=== PATIENT | female | born 1950 | race Caucasian/White ===

== ENCOUNTER → 2016-06-05 | Outpatient (CLI) | payer BC ==
[~2016-06-05] MED LIST: ADVIN10/60 INH; ALBUAER2 INH; ASPCH81X PO; ATOR10TA88 PO; CHOL100010 PO; CHOL20009 PO; CYAN100020 PO; LISI-461 PO; METAMUCIL PO; MULT-506 PO; OMEG10007 PO; ONDA4TAB10 SL; OXYB5TAB74 PO; OXYC-57 PO; PRED1SUS3 OPR; PRLSR20 PO; TAMS0.4C38 PO; ULT50X PO; VNTHFA/IN INH; VSC/5 PO; [UNRECOGNIZED DRUG - OTHER] PO
--- NOTE | 2016-06-05 10:39 | DIAGNOSTIC IMAGING REPORT ---
TWO VIEW CHEST CLINICAL HISTORY: Esophageal dysmotility. FINDINGS: PA and lateral chest radiographs are obtained. No prior studies are available for comparison at the time of dictation. The cardiomediastinal silhouette is unremarkable. There is mild atherosclerotic calcification of the thoracic aorta. The lungs and pleural spaces are clear. There is no pneumothorax. The skeletal structures are osteopenic. The bony thorax appears intact. Mild scoliosis is noted in the thoracic spine. Cholecystectomy clips are identified in the right upper quadrant. IMPRESSION: No active disease in the chest. Electronically signed by: Duke Cervantes M.D. 06/05/2016 10:37 AM Dictated Date/Time: 06/05/2016 10:36 AM
== END | disposition home or self-care (01) ==
LOC: C.RADBC 10:13
PROVIDERS: ATTEND Surgery
DX: K22.4 Dyskinesia of esophagus (principal)

== ENCOUNTER 2016-06-30 10:22 | Emergency (ER) | payer BC ==
[~2016-06-30] VITALS: Ht 154.9 cm; Wt 56.6 kg
[~2016-06-30 10:22] MED LIST changes: -CHOL20009 PO; -ONDA4TAB10 SL; -OXYB5TAB74 PO; -OXYC-57 PO; -TAMS0.4C38 PO; -VNTHFA/IN INH
[2016-06-30 10:27] VITALS: TEMP 36.9; Ht 154.9 cm; Wt 56.6 kg
[2016-06-30] MEDS ORDERED: ADVIN10/60 INH (11:28)
[2016-06-30] MEDS ORDERED: CHOL20009 PO (11:29)
[2016-06-30] MEDS ORDERED: VNTHFA/IN INH (11:29)
[2016-06-30] MEDS ORDERED: SODIUM CHLORIDE 0.9% 1000ML 1,000 ML IV STA (11:38)
[2016-06-30 11:50] LABS: BASO % 0.2 %; BASO ABS # 0.02 K/uL (0-0.2); COMPLETE YES; EOS % 0.2 %; HEMATOCRIT 40.3 % (37-47); IG% 0.2 %; LYMPH % 11.4 %; MEAN CORPUSCULAR HEMOGLOBIN 29.3 pg (25-34); MEAN CORPUSCULAR HGB CONC 34.5 g/dl (32-36); MEAN PLATELET VOLUME 11.5 fL (7.4-10.4); MONO % 9.5 %; NEUT % 78.5 %; PLATELET COUNT 217 K/uL (130-400); RED BLOOD COUNT 4.74 M/uL (4.2-5.4); WHITE BLOOD COUNT 12.27 K/uL (4.8-10.8)
[2016-06-30 11:58] LABS: BUN/CREATININE RATIO 20.4 (10-20); CALCIUM 9.8 mg/dl (8.5-10.1); CREATININE 1.1 mg/dl (0.60-1.20); POTASSIUM 3.7 mmol/L (3.5-5.1)
[2016-06-30] MEDS ORDERED: OPTIRAY 320 IV PRN (12:00)
[2016-06-30 12:02] LABS: ALB/GLOB RATIO 1.2 (0.9-2)
--- NOTE | 2016-06-30 12:40 | DIAGNOSTIC IMAGING REPORT ---
CT ABD/PELVIS IV CONTRAST ONLY CLINICAL HISTORY: LLQ pain, vomiting, constipation COMPARISON STUDY: 09/13/2008 TECHNIQUE: Following the IV administration of 119 mL of Optiray-320, CT scan of the abdomen and pelvis was performed from the lung bases to the proximal femurs. Images are reviewed in the axial, sagittal, and coronal planes. IV contrast was administered without complication. CT DOSE: 411.89 mGy.cm FINDINGS: Lower chest: There are mild basilar atelectatic changes present. There is a hiatal hernia with distal esophageal wall thickening. Liver: No space-occupying hepatic masses are visualized. There is focal fat adjacent the falciform ligament. Gallbladder: Unremarkable. Spleen: Normal in size and attenuation. Pancreas: No pancreatic masses are visualized. There is trace peripancreatic edema, likely originating from the left kidney Adrenal glands: Unremarkable. Kidneys: There is left-sided hydronephrosis and hydroureter. There is a 28 mm left renal cyst. There is obstructing 5 mm calculus at the level the left ureterovesical junction. Bowel: There are no transition zones indicate bowel obstruction. There is extensive colonic diverticulosis. Mild colonic wall thickening, likely secondary to peridiverticular muscular hypertrophy. The appendix appears normal. Peritoneum: There is no intraperitoneal free air or abdominal ascites. There is small fat-containing inguinal hernias. Vasculature: The abdominal aorta is normal in course and caliber. Adenopathy: None. Pelvic viscera: The uterus appears surgically absent. Skeletal structures: No destructive osseous lesions are seen. IMPRESSION: 1. 5 mm obstructing distal left ureteral calculus 2. No evidence of bowel obstruction. No evidence of free air 3. Normal appendix 4. Extensive diverticulosis. No evidence of acute diverticulitis 5. Hiatal hernia with distal esophageal wall thickening Electronically signed by: Otto Bansal M.D. 06/30/2016 12:39 PM Dictated Date/Time: 06/30/2016 12:32 PM
[2016-06-30 13:02] LABS: URINE APPEARANCE CLEAR (CLEAR); URINE BILIRUBIN NEG (NEG); URINE COLOR YELLOW; URINE NITRITE NEG (NEG); URINE PH 6.5 (4.5-7.5); URINE SPECIFIC GRAVITY 1.028 (1.000-1.030); UROBILINOGEN NEG (NEG); ZZUR CULT IF INDIC CLEAN CATCH NO
[2016-06-30 13:05] LABS: MANUAL MICROSCOPIC REQUIRED? NO; REVIEW REQ? NO
--- NOTE | 2016-06-30 13:19 | EMERGENCY ROOM VISIT NOTE ---
ED Visit Note First contact with patient: 11:29 The patient was seen and examined with Maegan De La Torre PA-C. I agree with the history, physical and findings. Please see the note for disposition and details.
[2016-06-30 13:21] VITALS: BP 113/68; PULSE 84; O2SAT 98
[2016-06-30] MEDS ORDERED: TAMS0.4C38 PO (13:42)
[2016-06-30] MEDS ORDERED: OXYC-57 PO (13:42)
[2016-06-30] MEDS ORDERED: ONDA4TAB10 SL (13:42)
--- NOTE | 2016-06-30 13:43 | EMERGENCY ROOM VISIT NOTE ---
History First contact with patient: 11:29 Chief Complaint: GI ASSESSMENT Stated Complaint: POSSIBLE BOWEL BLOCKAGE Nursing Triage Summary: Pt states "suspected bowel blockage" C/O LLQ abd pain since Thursday. Pain gets worse then she throws up and can urinate. Last night started with pain again. N/V x 7 times. Frequency and urgency with urination. "I haven't had a real BM since last Thursday, I've had a couple bunny turds that I've had to force out." Hiatal hernia repair Apr 28. History of Present Illness The patient is a 65 year old female who presents to the Emergency Room with complaints of intermittent left lower quadrant pain which began 6 days ago. The patient states that she has had several episodes of severe pain in the left lower quadrant. She reports that when she has the pain, she has difficulty emptying her bladder and feels like she has to have a bowel movement, but is not able. She has had several episodes of vomiting and states that yesterday, a few of the vomiting episodes have the appearance of coffee grounds. The patient states that she feels she is constipated and has not had a normal bowel movement in 1 week. She had a hiatal hernia repair in April by Dr. Santos and did contact him regarding this, but he did not feel it was related to the surgery. The patient has had the hiatal hernia repair and hysterectomy, but denies any other abdominal surgeries. She denies any further urinary symptoms. She denies any vaginal bleeding, fevers/chills, chest pain or shortness of breath. Review of Systems A complete 10-point Review of Systems was discussed with the patient, with pertinent positives and negatives listed in the History of Present Illness. All remaining Review of Systems questions can be considered negative unless otherwise specified. Past Medical/Surgical History Medical Problems: (1) GERD (gastroesophageal reflux disease) Social History Smoking Status: Never Smoker Current/Historical Medications Scheduled Aspirin (Aspirin Chewable), 81 MG PO QAM Atorvastatin (Lipitor), 10 MG PO QAM Cholecalciferol (Vitamin D), 1 TAB PO DAILY Cyanocobalamin (Vitamin B12), 1 TAB PO QAM Fish Oil ([place]-3), 2 CAP PO QAM Fluticasone Prop/Salmeterol (Advair Diskus 100/50 60 Dose), 1 PUFF INH QAM Lisinopril (Zestril), 10 MG PO QAM Multivitamin (Multivitamin), 1 TAB PO QAM Omeprazole (Prilosec), 20 MG PO QAM Ondasetron Odt (Zofran Odt), 4 MG SL Q6H Prednisolone Acetate (Ophth) (Pred Forte 1% Oph), 1 DROPS OPR QAM Solifenacin (Vesicare), 5 MG PO QAM Tamsulosin Hcl (Flomax), 0.4 MG PO DAILY Scheduled PRN Albuterol Hfa (Ventolin Hfa), 1 PUFF INH QID PRN for Shortness of Breath Oxycodone/Acetaminophen 5MG/325MG (Percocet 5MG/325MG), 1-2 TABS PO Q4H PRN for Pain Allergies Coded Allergies: Sulfa Drugs (Verified Allergy, Unknown, ITCHY, 06/30/16) Uncoded Allergies: OTC sinus med (Allergy, Unknown, rash, 04/15/16) pt to write down name of med and bring day of surgery Physical Exam Vital Signs Date Time Temp Pulse Resp B/P Pulse Ox O2 Delivery O2 Flow Rate FiO2 06/30/16 13:21 84 18 113/68 98 Room Air 06/30/16 12:37 84 18 104/61 96 Room Air 06/30/16 10:27 36.9 92 17 129/81 98 Room Air Physical Exam VITALS: Vitals are noted on the nurse's note and reviewed by myself. Vital signs stable. GENERAL: This is a 65-year-old female, in no acute distress, nondiaphoretic, well-developed well-nourished. SKIN: Capillary reflex less than 2 seconds. HEENT: Normocephalic. PERRLA. EOMI. Nares patent. Mucous membranes moist. Neck is supple without nuchal rigidity. HEART: Regular rate and rhythm without murmurs gallops or rubs. LUNGS: Clear to auscultation bilaterally without wheezes, rales or rhonchi. ABDOMEN: Positive bowel sounds x 4. Soft, nontender to palpation. NEURO: Patient was alert and oriented to person place and time. Medical Decision & Procedures ER Provider Diagnostic Interpretation: CT ABD/PELVIS IV CONTRAST ONLY FINDINGS: Lower chest: There are mild basilar atelectatic changes present. There is a hiatal hernia with distal esophageal wall thickening. Liver: No space-occupying hepatic masses are visualized. There is focal fat adjacent the falciform ligament. Gallbladder: Unremarkable. Spleen: Normal in size and attenuation. Pancreas: No pancreatic masses are visualized. There is trace peripancreatic edema, likely originating from the left kidney Adrenal glands: Unremarkable. Kidneys: There is left-sided hydronephrosis and hydroureter. There is a 28 mm left renal cyst. There is obstructing 5 mm calculus at the level the left ureterovesical junction. Bowel: There are no transition zones indicate bowel obstruction. There is extensive colonic diverticulosis. Mild colonic wall thickening, likely secondary to peridiverticular muscular hypertrophy. The appendix appears normal. Peritoneum: There is no intraperitoneal free air or abdominal ascites. There is small fat-containing inguinal hernias. Vasculature: The abdominal aorta is normal in course and caliber. Adenopathy: None. Pelvic viscera: The uterus appears surgically absent. Skeletal structures: No destructive osseous lesions are seen. IMPRESSION: 1. 5 mm obstructing distal left ureteral calculus 2. No evidence of bowel obstruction. No evidence of free air 3. Normal appendix 4. Extensive diverticulosis. No evidence of acute diverticulitis 5. Hiatal hernia with distal esophageal wall thickening Laboratory Results 06/30/16 11:17 Red Blood Count 4.74, Mean Corpuscular Volume 85.0, Mean Corpuscular Hemoglobin 29.3, Mean Corpuscular Hemoglobin Concent 34.5, Mean Platelet Volume 11.5, Neutrophils (%) (Auto) 78.5, Lymphocytes (%) (Auto) 11.4, Monocytes (%) (Auto) 9.5, Eosinophils (%) (Auto) 0.2, Basophils (%) (Auto) 0.2, Neutrophils # (Auto) 9.64, Lymphocytes # (Auto) 1.40, Monocytes # (Auto) 1.16, Eosinophils # (Auto) 0.02, Basophils # (Auto) 0.02 06/30/16 11:17 Test 06/30/16 11:17 06/30/16 12:36 White Blood Count 12.27 K/uL (4.8-10.8) Red Blood Count 4.74 M/uL (4.2-5.4) Hemoglobin 13.9 g/dL (12.0-16.0) Hematocrit 40.3 % (37-47) Mean Corpuscular Volume 85.0 fL (80-100) Mean Corpuscular Hemoglobin 29.3 pg (25-34) Mean Corpuscular Hemoglobin Concent 34.5 g/dl (32-36) Platelet Count 217 K/uL (130-400) Mean Platelet Volume 11.5 fL (7.4-10.4) Neutrophils (%) (Auto) 78.5 % Lymphocytes (%) (Auto) 11.4 % Monocytes (%) (Auto) 9.5 % Eosinophils (%) (Auto) 0.2 % Basophils (%) (Auto) 0.2 % Neutrophils # (Auto) 9.64 K/uL (1.4-6.5) Lymphocytes # (Auto) 1.40 K/uL (1.2-3.4) Monocytes # (Auto) 1.16 K/uL (0.11-0.59) Eosinophils # (Auto) 0.02 K/uL (0-0.5) Basophils # (Auto) 0.02 K/uL (0-0.2) RDW Standard Deviation 39.2 fL (36.4-46.3) RDW Coefficient of Variation 12.7 % (11.5-14.5) Immature Granulocyte % (Auto) 0.2 % Immature Granulocyte # (Auto) 0.03 K/uL (0.00-0.02) Anion Gap 10.0 mmol/L (3-11) Est Creatinine Clear Calc Drug Dose 37.4 ml/min Estimated GFR () 60.2 Estimated GFR (Non- 51.9 BUN/Creatinine Ratio 20.4 (10-20) Calcium Level 9.8 mg/dl (8.5-10.1) Total Bilirubin 0.6 mg/dl (0.2-1) Aspartate Amino Transf (AST/SGOT) 17 U/L (15-37) Alanine Aminotransferase (ALT/SGPT) 22 U/L (12-78) Alkaline Phosphatase 95 U/L (45-117) Total Protein 7.4 gm/dl (6.4-8.2) Albumin 4.0 gm/dl (3.4-5.0) Globulin 3.4 gm/dl (2.5-4.0) Albumin/Globulin Ratio 1.2 (0.9-2) Lipase 72 U/L (73-393) Urine Color YELLOW Urine Appearance CLEAR (CLEAR) Urine pH 6.5 (4.5-7.5) Urine Specific [place] 1.028 (1.000-1.030) Urine Protein NEG (NEG) Urine Glucose (UA) NEG (NEG) Urine Ketones NEG (NEG) Urine Occult Blood 1+ (NEG) Urine Nitrite NEG (NEG) Urine Bilirubin NEG (NEG) Urine Urobilinogen NEG (NEG) Urine Leukocyte Esterase NEG (NEG) Urine WBC (Auto) 1-5 /hpf (0-5) Urine RBC (Auto) 0-4 /hpf (0-4) Urine Hyaline Casts (Auto) 1-5 /lpf (0-5) Urine Epithelial Cells (Auto) 10-20 /lpf (0-5) Urine Bacteria (Auto) NEG (NEG) Medications Administered Medications (Trade) Dose Ordered Sig/Terrance Route Start Time Stop Time Status Last Admin Dose Admin Sodium Chloride (Nss 1000ml) 1,000 ml @ 999 mls/hr Q1H1M STAT IV 06/30/16 11:38 06/30/16 12:38 DC 06/30/16 11:45 999 MLS/HR Medical Decision Differential diagnosis includes small bowel obstruction, diverticulitis, renal calculus, cystitis, gastroenteritis, colitis, among others. The patient was evaluated as above. Labs were drawn and IV access was obtained. Imaging studies were performed and read by radiology as above. The patient was medicated with 1 L normal saline solution. The patient was reassessed multiple times during their stay in the emergency department and remained in stable condition. The patient is a 65-year-old female who presents today complaining of intermittent left lower quadrant pain and constipation. Labs revealed a mild leukocytosis, possibly secondary to vomiting. There was no concerning anemia or electrolyte abnormality. Kidney function and liver functions were within normal limits. Urinalysis was not suggestive of infection, but did show the presence of blood. A CT scan of the abdomen and pelvis was performed and showed a distal left ureteral calculus. This is likely the cause of the patient 's discomfort. She will be given prescriptions for pain medication, Zofran and Flomax and given a urine strainer. She has seen Dr. Butcher of urology for bladder issues in the past and will follow-up with him. I did recommended the patient follow up closely with her primary care provider regarding the possible GI bleed, as she did describe coffee-ground emesis. She was instructed to return sooner if she had worsening symptoms or worsening pain. Based on the patient's presentation, lab results, and imaging studies, I feel the patient is stable for outpatient treatment. The patient's case was reviewed with Dr. Chaney, ED attending physician, who agreed with my assessment and treatment plan. Discharge instructions were reviewed with the patient. The patient verbalized understanding of my assessment and treatment plan and was discharged home in good condition. [place] Drug Monitoring [place] Search Results: patient reviewed within database, no issues identified Impression Primary Impression: Left ureteral calculus Departure Information Dispostion Home / Self-Care Condition GOOD Prescriptions Tamsulosin Hcl (FLOMAX) 0.4 Mg Cap 0.4 MG PO DAILY for 10 Days, #10 CAP Prov: Maegan De La Torre PA-C 06/30/16 Ondasetron Odt (ZOFRAN ODT) 4 Mg Tab 4 MG SL Q6H for Nausea, #15 TAB Prov: Maegan De La Torre PA-C 06/30/16 Oxycodone/Acetaminophen 5MG/325MG (PERCOCET 5MG/325MG) Tab 1-2 TABS PO Q4H Y for Pain, #20 TAB For Initial Treatment Prov: Maegan De La Torre PA-C 06/30/16 Referrals Galdino Puente D.O.Int.Med. (PCP) Reza Butcher M.D. Patient Instructions My [facility] Additional Instructions You have been treated in the Emergency Department today for a Kidney Stone ( Nephrolithiasis). Follow-up with your primary care provider in the next 1-2 weeks regarding your possible gastrointestinal bleeding. Continue Prilosec as we discussed. You have been prescribed Percocet to be used for pain control. This is a narcotic medication. You cannot drive or consume alcohol while on this medicine. This medicine should only be used for pain that cannot be controlled with [id number] pain medicines. You have been prescribed Zofran to be used for any nausea or vomiting. Take as prescribed. You have been prescribed Flomax 0.4 mg to be taken ONCE daily. This medicine has been prescribed as it can help relax the smooth muscles of the urinary tract increasing transit time of the kidney stone. For pain control, you can use the following hmub-yim-iqpyqpx medicines (if >12 yo): - Regular strength (325mg/tab) Tylenol (acetaminophen) 2 tabs every 4-6 hours as needed. Do not exceed 12 tablets in a 24 hour period. Avoid taking more than 4 grams (4000 mg) of Tylenol per day. This includes any other sources of acetaminophen you may take on a regular basis. - Regular strength (200 mg/tab) Advil (ibuprofen) 1-2 tabs every 4-6 hours as needed. Do not exceed a dose of 3200 mg per day. You have been provided a strainer and specimen collection cup. You should strain your urine to collect any passed stones. Your stones can be placed into the specimen cup and taken to your Urologist for further evaluation. You should contact your Urologist's office to establish a follow-up appointment from today's Emergency Department visit. Return to the Emergency Department if your symptoms persist despite the treatment plan outlined above or if you develop the following symptoms: intractable pain, fever, chills, or large amounts of blood in your urine.
[2016-07-10] MEDS ORDERED: TAMS0.4C38 PO (08:50)
[2016-07-10] MEDS ORDERED: OXYB5TAB74 PO (08:50)
[2016-07-18] MEDS ORDERED: OXYC-57 PO (08:06)
== END 2016-06-30 13:51 | disposition home or self-care (01) ==
LOC: C.EDB 10:23 → C.EDC 13:51
DX: N20.1 Calculus of ureter (principal); K21.9 Gastro-esophageal reflux disease without esophagitis; Z79.82 Long term (current) use of aspirin; R11.10 Vomiting, unspecified

== ENCOUNTER → 2016-07-07 | Outpatient (CLI) | payer BC ==
[~2016-07-07] MED LIST changes: -ALBUAER2 INH; -CHOL100010 PO; +CHOL20009 PO; -METAMUCIL PO; +ONDA4TAB10 SL; +OXYB5TAB74 PO; +OXYC-57 PO; +TAMS0.4C38 PO; -ULT50X PO; +VNTHFA/IN INH; -[UNRECOGNIZED DRUG - OTHER] PO
--- NOTE | 2016-07-07 13:44 | DIAGNOSTIC IMAGING REPORT ---
KUB CLINICAL HISTORY: Left flank pain. Ureteral calculus. COMPARISON STUDY: CT scan dated 06/30/2016 FINDINGS: There is no pathologic bowel dilatation. There is moderate stool within the right colon. No renal calculi are visualized. There is a 5 mm calcification within the left pelvic basin, consistent with the recently described distal left ureteral calculus. IMPRESSION: 5 mm calcification within the left pelvic basin, consistent with the patient's recently described distal left ureteral calculus Electronically signed by: Otto Bansal M.D. 07/07/2016 1:42 PM Dictated Date/Time: 07/07/2016 1:40 PM
== END | disposition home or self-care (01) ==
LOC: C.RADBC 13:21
PROVIDERS: ATTEND Nurse Practitioner Family
DX: N20.1 Calculus of ureter (principal)

== ENCOUNTER → 2016-07-08 | Outpatient (CLI) | payer BC | END | disposition home or self-care (01) | LOC: C.LAB 16:52 | PROVIDERS: ATTEND Nurse Practitioner Family | DX: N20.1 Calculus of ureter (principal) ==

== ENCOUNTER → 2016-07-10 | Outpatient (CLI) | payer BC ==
--- NOTE | 2016-07-10 13:25 | MAMMOGRAPHY REPORT ---
BILATERAL DIGITAL SCREENING MAMMOGRAM WITH CAD: 07/10/2016 CLINICAL HISTORY: Routine screening. Patient has no complaints. TECHNIQUE: Current study was also evaluated with a Computer Aided Detection (CAD) system. Bilatera l CC and MLO views were obtained. COMPARISON: Comparison is made to exams dated: 07/09/2015 mammogram, 07/06/2013 mammogram, 07/07/2014 mammogram, 07/05/2012 mammogram, 06/25/2011 mammogram, and 06/24/2010 mammogram - [facility]. BREAST COMPOSITION: The tissue of both breasts is heterogeneously dense, which may obscure small ma sses. FINDINGS: No suspicious masses, calcifications, or areas of architectural distortion are noted in e ither breast. There has been no significant interval change compared to prior exams. IMPRESSION: ACR BI-RADS CATEGORY 1: NEGATIVE There is no mammographic evidence of malignancy. A 1 year screening mammogram is recommended. The p atient will receive written notification of the results. Approximately 10% of breast cancers are not detected with mammography. A negative mammographic repor t should not delay biopsy if a clinically suggestive mass is present. Evy Carrizales M.D. ah/:07/10/2016 12:38:07 Editor Publications: Angelia CARIAS(R)(M), [facility] letter sent: Normal 1/2 BI-RADS Code: ACR BI-RADS Category 1: Negative
== END | disposition home or self-care (01) ==
LOC: C.MAMM 11:03
PROVIDERS: ATTEND Obstetrics & Gynecology
DX: Z12.31 Encounter for screening mammogram for malignant neoplasm of breast (principal)

== ENCOUNTER → 2016-07-17 | Outpatient (CLI) | payer BC ==
[~2016-07-17] MED LIST changes: -ONDA4TAB10 SL; -PRED1SUS3 OPR
--- NOTE | 2016-07-17 17:38 | DIAGNOSTIC IMAGING REPORT ---
KUB CLINICAL HISTORY: Ureteral calculus COMPARISON STUDY: KUB dated 07/07/2016, CT scan dated 06/30/2016 FINDINGS: There is scattered stool throughout the colon. The renal shadows are largely obscured by overlying bowel gas and fecal material. There is no conventional radiographic evidence of bowel obstruction. There are surgical clips within the right upper quadrant consistent with a prior cholecystectomy. There is a stable 5 mm left pelvic basin calcification, consistent with the patient's known distal left ureteral calculus IMPRESSION: No change in the 5 mm left pelvic basin calcification, consistent with the patient's known distal left ureteral calculus Electronically signed by: Otto Bansal M.D. 07/17/2016 5:37 PM Dictated Date/Time: 07/17/2016 5:36 PM
== END | disposition home or self-care (01) ==
LOC: C.RAD 16:54
PROVIDERS: ATTEND Nurse Practitioner Family
DX: N20.1 Calculus of ureter (principal)

== ENCOUNTER → 2016-07-18 | Day surgery (SDC) | payer BC ==
[2016-07-10 08:51] VITALS: Ht 154.3 cm; Wt 58.2 kg
[~2016-07-18] VITALS: Ht 154.3 cm; Wt 58.2 kg
[~2016-07-18] MED LIST changes: +ACETAMINOPHEN 325 MG TAB ONE; +ACETAMINOPHEN 325 MG TAB PO STA; +ATROPINE SULFATE 0.1 MG/ML 5ML SYR IV PRN; +CIPROFLOXACIN 400MG / D5W IV SCH; +DEXAMETHASONE SOD INJ 4 MG/ML VIAL ONE; +EpHEDrine SULFATE INJ 50 MG/ML AMP IV PRN; +FENTANYL CITRATE INJ 50 MCG/1 ML 2 ML VIAL IV PRN; +FENTANYL CITRATE INJ 50 MCG/1 ML 2 ML VIAL ONE; +LACTATED RINGER'S 1000ML 1,000 ML IV SCH; +LIDOCAINE HCL 2% 2 ML VIAL (20MG/ML) ONE; +MIDAZOLAM HCL 1 MG/ML 2ML VIAL ONE; +ONDANSETRON INJ 2 MG/ML 2 ML VIAL ONE; +OXYCODONE/ACETAMINOPHEN 5-325 TAB PO PRN; +PROPOFOL IV EMULSION 10 MG/ML 20 ML VIAL IV ONE
--- NOTE | 2016-07-18 07:40 | History & Physical Bridge Note ---
H&P Re-Evaluation Bridge Note: I have examined the patient, reviewed the History & Physical and in the interval since the performance of the History & Physical I have noted the following changes of clinical significance: No changes noted
--- NOTE | 2016-07-18 08:06 | [facility] Post Operative Brief Note ---
Immediate Operative Summary Operative Date Jul 18, 2016. Pre-Operative Diagnosis left ureteral stone Post-Operative Diagnosis same Procedure(s) Performed left eswl Surgeon daisy [employer] [facility] Worker Surgeon(s) none Estimated Blood Loss none Findings left ureteral stone Specimens none
--- NOTE | 2016-07-18 08:08 | Discharge Instructions-SurgCtr ---
Discharge Instructions Date of Service Jul 18, 2016. Visit Reason for Visit: Stones Discharge Discharge Diagnosis / Problem: stone Discharge Goals Goal(s): Therapeutic intervention Medications Stopped Medications Name(s): ASA- LAST TAKEN Thursday07/11/16 Activity Recommendations Activity Limitations: resume your previous activity (take it easy today) MEDICATIONS: Resume previous medications unless instructed otherwise by your surgeon. Resume pre-ESWL medication except for aspirin, coumadin or other blood thinners. __ Toradol 10 mg every 6 hours for initial pain. __ Lortab 5 mg 1-2 every 4 hours for pain. _x_ Percocet 5 mg 1-2 every 4 hours for pain. __ Macrodantin 50 mg x 3 a day. __ Flomax 1 tab daily one half (1/2) hour after supper. SPECIAL CARE INSTRUCTIONS: 1. Get KUB (x-ray) _x_ day before or day of office visit and bring x-ray to office __ get x-ray 2 days before and tell office you are getting x-rays when you call for the appointment. 2. Strain ALL urine. 3. Please call if you have a fever, chills, severe pain, or constant dribbling of urine. 4. Office phone number . FOLLOW UP VISIT: Please call the office to schedule a follow-up appointment at . Anesthesia . Post Anesthesia Instructions: If you have had General Anesthesia or IV Sedation: * Do not drive today. * Resume driving when surgeon permits. * Do not make important decisions or sign legal documents today. * Call surgeon for: 1. Temperature elevations greater than 101 degrees F. 2. Uncontrollable pain. 3. Excessive bleeding. 4. Persistent nausea and vomiting. 5. Medication intolerance (nausea, vomiting or rash). * For nausea and vomiting use only clear liquids such as: tea, soda, bouillon until nausea subsides, then gradually increase diet as tolerated. * If you have any concerns or questions, call your surgeon's office. If physician is unavailable and it is an emergency, call 911 or go to the nearest emergency room. . Diet Recommendations Home Diet: resume previous diet Procedures Procedures Performed: left eswl Pending Studies Studies pending at discharge: no Medical Emergencies . Who to Call and When: Medical Emergencies: If at any time you feel your situation is an emergency, please call 911 immediately. . Non-Emergent Contact Non-Emergency issues call your: Urologist . . "Provider Documentation" section prepared by Chris Sandoval. [place] Drug Monitoring [place] Search Results: patient reviewed within database
[2016-07-18 09:16] VITALS: TEMP 36.5
[2016-07-18 10:00] VITALS: BP 110/74; PULSE 74; O2SAT 95
--- NOTE | 2016-07-18 10:04 | Anesthesia Progress Nt - [facility] ---
Anesthesia Post Op Note Date & Time Jul 18, 2016 at 10:04 Vital Signs Pain Intensity: 1.0 Vital Signs Past 12 Hours Date Time Temp Pulse Resp B/P Pulse Ox O2 Delivery O2 Flow Rate FiO2 07/18/16 09:16 36.5 64 16 122/70 96 Room Air 07/18/16 09:10 37.2 95 Room Air 07/18/16 09:10 120/67 07/18/16 09:09 62 14 96 07/18/16 09:09 62 14 07/18/16 09:05 117/71 07/18/16 09:04 58 14 97 07/18/16 09:04 59 14 07/18/16 09:00 110/65 07/18/16 08:59 71 14 07/18/16 08:59 70 14 99 07/18/16 08:55 123/68 07/18/16 08:54 55 17 07/18/16 08:54 55 17 100 07/18/16 08:50 123/70 07/18/16 08:49 61 19 07/18/16 08:49 61 19 100 07/18/16 08:45 113/71 07/18/16 08:44 65 16 122/73 100 07/18/16 08:44 65 16 07/18/16 08:44 37.4 66 16 122/73 99 Mask 6 07/18/16 06:47 37.0 79 16 113/71 96 Room Air Notes Mental Status: alert / awake / arousable, participated in evaluation Pt Amnestic to Procedure: Yes Nausea / Vomiting: adequately controlled Pain: adequately controlled Airway Patency, RR, SpO2: stable & adequate BP & HR: stable & adequate Hydration State: stable & adequate Anesthetic Complications: no major complications apparent
--- NOTE | 2016-07-24 09:42 | OPERATIVE REPORT ---
DATE OF OPERATION: 07/18/2016 PREOPERATIVE DIAGNOSIS: Left ureteral calculus. POSTOPERATIVE DIAGNOSIS: Same. PROCEDURE: Extracorporeal shockwave lithotripsy. FINDINGS: KUB showed stone in the left ureter. SURGEON: Dr. Sandoval. ANESTHESIA: General. DRAINS: None. COMPLICATIONS: None. SPECIMENS: None. INDICATIONS: The patient is a 65-year-old white female with a left ureteral stone, being brought in for ESWL. DETAILS OF PROCEDURE: The patient was brought to the litho suite. She was correctly identified and the stone was visualized on her most recent x-rays. After the correct timeout was performed, the patient was positioned over the therapy head. An adequate level of anesthesia was administered. The extracorporeal shockwave lithotripsy treatment was then commenced. Please see the [place] Kidney Stone Management sheet for complete treatment summary. After completion of the procedure, the patient was taken to the recovery room in stable condition. I attest to the content of the Intraoperative Record and any orders documented therein. Any exceptio ns are noted below.
== END | disposition home or self-care (01) ==
LOC: X.SURG 06:27
PROVIDERS: ATTEND Urology
DX: N20.1 Calculus of ureter (principal); R31.29 Other microscopic hematuria; R39.15 Urgency of urination; I10 Essential (primary) hypertension; K57.30 Diverticulosis of large intestine without perforation or abscess without bleeding; E78.00 Pure hypercholesterolemia, unspecified; M85.80 Other specified disorders of bone density and structure, unspecified site; K21.9 Gastro-esophageal reflux disease without esophagitis; K22.4 Dyskinesia of esophagus; Z80.0 Family history of malignant neoplasm of digestive organs; Z90.710 Acquired absence of both cervix and uterus; K22.2 Esophageal obstruction; Z98.890 Other specified postprocedural states

== ENCOUNTER → 2016-07-30 | Outpatient (CLI) | payer BC ==
[~2016-07-30] MED LIST changes: -ACETAMINOPHEN 325 MG TAB ONE; -ACETAMINOPHEN 325 MG TAB PO STA; -ATROPINE SULFATE 0.1 MG/ML 5ML SYR IV PRN; -CIPROFLOXACIN 400MG / D5W IV SCH; -DEXAMETHASONE SOD INJ 4 MG/ML VIAL ONE; -EpHEDrine SULFATE INJ 50 MG/ML AMP IV PRN; -FENTANYL CITRATE INJ 50 MCG/1 ML 2 ML VIAL IV PRN; -FENTANYL CITRATE INJ 50 MCG/1 ML 2 ML VIAL ONE; -LACTATED RINGER'S 1000ML 1,000 ML IV SCH; -LIDOCAINE HCL 2% 2 ML VIAL (20MG/ML) ONE; -MIDAZOLAM HCL 1 MG/ML 2ML VIAL ONE; -ONDANSETRON INJ 2 MG/ML 2 ML VIAL ONE; -OXYCODONE/ACETAMINOPHEN 5-325 TAB PO PRN; -PROPOFOL IV EMULSION 10 MG/ML 20 ML VIAL IV ONE
--- NOTE | 2016-07-30 17:00 | DIAGNOSTIC IMAGING REPORT ---
KUB HISTORY: N20.1 Ureteral stone COMPARISON: KUB 07/17/2016. FINDINGS: The bowel gas pattern is unremarkable. There are no dilated loops of small bowel to suggest an obstruction. Cholecystectomy. No renal or ureteral calculi identified. Specifically, the distal left ureteral stone is no longer visualized and is likely passed in the interval. No pneumoperitoneum or pneumatosis. IMPRESSION: The distal left ureteral stone seen on the prior study is no longer visualized and has likely passed in the interval. Electronically signed by: Jesus Whittaker M.D. 07/30/2016 4:59 PM Dictated Date/Time: 07/30/2016 4:57 PM
[2016-07-30 17:09] LABS: ALT/SGPT 22 U/L (12-78); AST/SGOT 14 U/L (15-37); BLOOD UREA NITROGEN 20 mg/dl (7-18); BUN/CREATININE RATIO 21.3 (10-20); CALCIUM 9.8 mg/dl (8.5-10.1); CARBON DIOXIDE 30 mmol/L (21-32); CHLORIDE 110 mmol/L (98-107); CHOLESTEROL 129 mg/dl (0-200); CREATININE 0.93 mg/dl (0.60-1.20); GLUCOSE 95 mg/dl (70-99); POTASSIUM 3.8 mmol/L (3.5-5.1); SODIUM 146 mmol/L (136-145)
[2016-07-30 17:11] LABS: ALB/GLOB RATIO 1.1 (0.9-2); ALKALINE PHOSPHATASE 86 U/L (45-117); CHOLESTEROL/HDL RATIO 2.6; HDL CHOLESTEROL 49 mg/dl; LDL CHOLESTEROL CALCULATED 52 mg/dl; TRIGLYCERIDES 138 mg/dl (0-150); VERY LOW DENSITY LIPOPROT CALC 28 mg/dl
== END | disposition home or self-care (01) ==
LOC: C.RAD 16:21
PROVIDERS: ATTEND Physician Assistant Medical
DX: I10 Essential (primary) hypertension (principal); E78.00 Pure hypercholesterolemia, unspecified; Z11.59 Encounter for screening for other viral diseases; N20.1 Calculus of ureter

== ENCOUNTER → 2016-07-31 | Outpatient (CLI) | payer BC | END | disposition home or self-care (01) | LOC: C.LABSPEC 17:40 | PROVIDERS: ATTEND Nurse Practitioner Family | DX: N20.1 Calculus of ureter (principal) ==

== ENCOUNTER → 2017-03-16 | Outpatient (CLI) | payer BC ==
[~2017-03-16] MED LIST changes: +ATOR10TA82 PO; -ATOR10TA88 PO; +DTR/5 PO; -OXYB5TAB74 PO; -OXYC-57 PO
== END | disposition home or self-care (01) ==
LOC: C.MAMM 11:13
PROVIDERS: ATTEND Physician Assistant Medical
DX: M85.88 Other specified disorders of bone density and structure, other site (principal); M85.852 Other specified disorders of bone density and structure, left thigh; M85.851 Other specified disorders of bone density and structure, right thigh

== ENCOUNTER → 2017-06-05 | Outpatient (CLI) | payer BC ==
[2017-06-05 19:10] LABS: ALBUMIN 3.6 gm/dl (3.4-5.0); ALT/SGPT 38 U/L (12-78); BLOOD UREA NITROGEN 24 mg/dl (7-18); CALCIUM 9.9 mg/dl (8.5-10.1); CARBON DIOXIDE 30 mmol/L (21-32); CHOLESTEROL 137 mg/dl (0-200); CREATININE 1.15 mg/dl (0.60-1.20); GLUCOSE 61 mg/dl (70-99); POTASSIUM 4.1 mmol/L (3.5-5.1); SODIUM 143 mmol/L (136-145)
[2017-06-05 19:21] LABS: ALKALINE PHOSPHATASE 112 U/L (45-117); AST/SGOT 34 U/L (15-37); LDL CHOLESTEROL CALCULATED 36 mg/dl; TOTAL PROTEIN 7.2 gm/dl (6.4-8.2)
== END | disposition home or self-care (01) ==
LOC: C.LAB 17:57
PROVIDERS: ATTEND Physician Assistant Medical
DX: Z00.00 Encounter for general adult medical examination without abnormal findings (principal); I10 Essential (primary) hypertension; E78.00 Pure hypercholesterolemia, unspecified

== ENCOUNTER → 2017-07-15 | Outpatient (CLI) | payer BC ==
--- NOTE | 2017-07-16 08:03 | MAMMOGRAPHY REPORT ---
BILATERAL DIGITAL SCREENING MAMMOGRAM TOMOSYNTHESIS WITH CAD: 07/15/2017 CLINICAL HISTORY: Routine screening. Patient has no complaints. TECHNIQUE: Breast tomosynthesis in addition to standard 2D mammography was performed. Current study was also evaluated with a Computer Aided Detection (CAD) system. COMPARISON: Comparison is made to exams dated: 07/10/2016 mammogram, 07/09/2015 mammogram, 07/07/2014 ma mmogram, 07/06/2013 mammogram, 07/05/2012 mammogram, and 06/25/2011 mammogram - [facility]ter. BREAST COMPOSITION: The tissue of both breasts is heterogeneously dense, which may obscure small mas ses. FINDINGS: The parenchymal pattern is unchanged. No developing mass, architectural distortion or clus ter of suspicious microcalcifications is seen in either breast. IMPRESSION: ACR BI-RADS CATEGORY 2: BENIGN There is no mammographic evidence of malignancy. A 1 year screening mammogram is recommended. The pa tient will receive written notification of the results. Approximately 10% of breast cancers are not detected with mammography. A negative mammographic report should not delay biopsy if a clinically suggestive mass is present. Chelsie Butcher M.D. ay/:07/15/2017 09:26:42 [employer]ail Finisher Hand: Colette Hernadez, [facility] letter sent: Normal 1/2 BI-RADS Code: ACR BI-RADS Category 2: Benign
== END | disposition home or self-care (01) ==
LOC: C.MAMM 08:08
PROVIDERS: ATTEND Obstetrics & Gynecology
DX: Z12.31 Encounter for screening mammogram for malignant neoplasm of breast (principal)

== ENCOUNTER → 2017-08-07 | Outpatient (CLI) | payer BC ==
--- NOTE | 2017-08-07 11:47 | DIAGNOSTIC IMAGING REPORT ---
KUB CLINICAL HISTORY: N20.0 [id number] nephrocalcinosis COMPARISON STUDY: 07/30/2016 FINDINGS: The soft tissues, psoas shadows, renal outlines and intestinal gas pattern appear normal. There is no evidence for bowel obstruction. No abnormal abdominal calcifications are seen. No evidence for a left ureteral calculus. IMPRESSION: Normal study. The above report was generated using voice recognition software. It may contain grammatical, syntax or spelling errors. Electronically signed by: Kris Bravo M.D. 08/07/2017 11:46 AM Dictated Date/Time: 08/07/2017 11:45 AM
== END | disposition home or self-care (01) ==
LOC: C.RADBC 11:21
PROVIDERS: ATTEND Urology
DX: N20.0 Calculus of kidney (principal)

== ENCOUNTER 2024-01-24 09:11 | Observation (INO) ==
[2024-01-24 09:22] VITALS: TEMP 97.9
--- NOTE | 2024-01-24 09:30 | CT Scan Report ---
CT head/brain wo con CLINICAL HISTORY: Neuro deficit, acute, stroke suspected Technique: Contiguous axial CT images of the head were acquired from the base of the skull to the [place] without intravenous contrast administration. Images were viewed in brain, subdural and bone [facility]. Automated dose lowering techniques and/or adjustment according to patient size were utilized for this exam. Comparison: None available at the time of this dictation. Findings: The ventricles, basal cisterns, and cerebral sulci are normal. There is no acute intracranial hemorrh age or evidence of acute territorial infarction. Neither mass effect, shift of the midline structures , nor abnormal extra-axial fluid collections are shown. Imaged portions of the paranasal sinuses and mastoid air cells are clear. The orbits appear normal. There are no acute fractures of the calvaria or scalp swelling. Impression: No acute intracranial hemorrhage, no evidence of acute territorial infarction or other acute intracra nial disease process. ACT 112: Negative or not required by law. Electronically signed by: Pasquale Cabrera M.D. 01/24/2024 9:29 AM
--- NOTE | 2024-01-24 09:44 | Emergency Department Note ---
Impression & Plan Acute confusion, Nausea & vomiting ED Provider Note NAME: CARMEN MCKEON AGE: 73 SEX: F : 1950 ARRIVES VIA: Walk-In INFORMANT: Patient, son ED PROVIDER(S): Shailesh Andrew MD CHIEF COMPLAINT: Confusion MEDICAL DECISION MAKING: Patient presents due to concern for memory issues there was a reported left- sided facial droop in triage although not overtly present at the bedside. Head stroke was initiated from triage. The son states that it was not something he noticed prior to arrival. IV was established and blood work was obtained along with CT head and CT angiography of the head and neck. Initial dry CT was obtained and read as negative. The patient currently has an NIH of 0. Patient's blood work shows a white count of 15 with a normal H&H and platelet count kidney function is unremarkable. Patient denies any infectious symptoms. Patient does not believe that she has a UTI. CT head and CT angiography of the head and neck are negative. I did speak with the on-call hospitalist service and the patient was admitted to Dr. Garduno. Critical Care: I have personally spent 35 minutes of critical care time in direct management of this patient. This includes bedside care, interpretation of diagnostic studies, and testing, discussion with consultants, patient, and family members, and other require inpatient management activities. This 35 minutes is in excess of all separately billable procedures. Discussion w/ other healthcare providers: Dr. Garduno inpatient medicine service Prior /Outside records reviewed: None Differential diagnosis: Infection, dehydration, metabolic abnormality, hypo/hyperglycemia, electrolyte imbalance, anemia, UTI, pneumonia, thyroid dysfunction among others were considered. Diagnostics, as interpreted by me: ECG: Normal sinus rhythm, rate of 74, normal intervals, normal axis T wave inversion in lead III no ST elevations. Cardiac monitoring: An order was placed for continuous cardiac monitoring. The monitor shows a rate of 75 with sinus rhythm. Patient was placed on pulse oximetry Medical decision rules: None Imaging studies: I informally interpreted the patient's chest x-ray does not show obvious pneumonia or pneumothorax with formal report to follow. HPI: Patient presents with son due to concern for memory issues. The patient reports that she got up about 530 6:00 which is typical she got a shower and states that she did not recall her shower. The patient states that she would go make some coffee and subsequently was having some issues of some nausea and then subsequently vomited. Patient reportedly was very repetitive no headache. Patient was unsure as to the 8 her shower as well as some boxes in the living room which she had placed there before. Patient does believe that she is improved compared to prior. The patient does report that occasionally when she lays on her right side she does develop vertigo but states that she did not feel that way this morning. Patient denies any falls or trauma no head or neck pain. Patient denies any personal prior history of stroke or mini stroke no visual field deficits. Patient does report that she has chronic stomach issues. Patient denies any focal numbness or weakness at this time. No reported slurred speech or facial droop. Son does comment that she is typically "sharp as attack" and that her memory dysfunction this morning was acute and changed. PAST MEDICAL HISTORY: See Below PAST SURGICAL HISTORY: See Below SOCIAL HISTORY: See Below HOME MEDICATIONS: See Below ALLERGIES: See Below VITALS: See Below PHYSICAL EXAMINATION: GENERAL: NAD, non-toxic. EYE EXAM: Normal conjunctiva. PERRL, no anisocoria and EOM's grossly intact w/o pain. Prior cornea replacement of the right eye. No obvious hyphema or hypopyon. OROPHARYNX: Moist mucus membranes, grossly normal dentition. NECK: Trachea midline, no stridor. LUNGS: Clear to auscultation. Normal chest wall mechanics. HEART: NSR, no MRG. ABDOMEN: Abdomen soft, non-tender, no masses, no rebound or guarding. BACK: No CVA TTP. SKIN: No rashes and no bruising. UPPER EXTREMITIES: Upper extremities are grossly normal. LOWER EXTREMITIES: Grossly normal, no edema. NEURO EXAM: A&O x3, cranial nerves II-XII grossly intact, normal speech, moves all 4 extremities. Past Med/Surg History Problem List (Updated 01/24/24 @ 16:24 by Shailesh Andrew MD) Nausea & vomiting (Acute) Acute confusion (Acute) Altered mental status Constipation History of colon polyps Restless legs Gastroparesis Incisional hernia of anterior abdominal wall without obstruction or gangrene Nephrolithiasis Irritable bowel syndrome (IBS) UNDER CONTROL Vitamin D deficiency Osteopenia Hypercholesterolemia Extrinsic asthma LAST INHALER USE 03/2021 WITH COVID Esophageal dysmotility Diverticulosis of colon Allergic rhinitis due to pollen Osteoarthritis Hypertension GERD (gastroesophageal reflux disease) Medical History Osteopenia Osteoarthritis IBS (irritable bowel syndrome) Diverticulosis of colon Allergic rhinitis Seasonal allergies Restless leg syndrome Nephrolithiasis Asthma well controlled w/ daily inhaler, rare use of rescue inhaler Hypercholesteremia Gastroparesis Chronic back pain History of COVID-19 DX'D 03/18/2021 [facility]-COUGH, FATIGUE, COUGH-RECOVERED AT HOME-SYMPTOMS RESOLVED Schatzki's ring Surgical History Hx of lithotripsy History of incisional hernia repair (05/23/21) Open Repair Incarcerated Incisional Hernia Abdominal Wall - Anthony Barnes MD, FACS 05/23/21 History of esophagogastroduodenoscopy (EGD) History of colonoscopy S/P left oophorectomy Status post fine needle aspiration left breast benign History of arthroscopy of left knee meniscus repair and cyst removal History of arthroscopy of right knee meniscus repair History of lithotripsy (2016) History of hysterectomy with unilateral oophorectomy R oophorectomy History of section History of cholecystectomy History of repair of hiatal hernia (04/2016) w/ lap Panfilo Fundoplication Dr. Santos History of wisdom tooth extraction History of cornea transplant right eye x2 Family History Sister Breast cancer Colorectal cancer Father Diabetes Myocardial infarction Brother Diabetes Cancer Mother Heart disease Myocardial infarction Brother COPD (chronic obstructive pulmonary disease) Brother Multiple sclerosis Brother Myocardial infarction Unknown Ovarian cancer Aunt Breast cancer Grandmother Breast cancer Other No family history of adverse response to anesthesia Denies family history of Prostate cancer Social History Smoking Status: Never smoker Second Hand Exposure: Yes (SPOUSE SMOKES); Do You Dip or Chew Tobacco: No; Hx Alcohol Use: Yes Alcohol type: wine Hx Substance Use: No Preferred Language: Vietnamese Communication Ability: Effective Visual Impairment: No Limitations Hearing Ability: Use of Hearing Aid General Service Technician Required: No Beliefs That Will Affect Care: None marital status: Current Living Situation: Spouse current occupational status: employed current occupation: [employer]; [employer] How many Children do You have: 2 How many Children do You have Comment: One natural, one adopted Feels Safe at Home: Yes Childhood Exposure to Second-Hand Smoke: Yes Diet: regular Diet Comment: regular caffeine: Yes (Coffee 1 per day) during the past year weight has: remained stable Dental Care, Regularly: Yes Physical Activity Frequency: Daily Seatbelt Use: always Sunscreen Use: Yes Assistive Devices: Glasses and Hearing Aid - Bilateral Allergies Allergies Allergy/AdvReac Type Severity Reaction Status Date / Time Sulfa (Sulfonamide Allergy Mild ITCHY Verified 12/21/23 13:12 Antibiotics) Home Meds Home Medications Medication Instructions Recorded Confirmed aspirin 81 mg tablet,delayed 81 mg PO QAM 09/14/18 01/24/24 release cyanocobalamin (vitamin B-12) 1 tab PO QAM 09/14/18 01/24/24 1,000 mcg tablet (Vitamin B-12) multivitamin 1 tab PO QAM 09/14/18 01/24/24 prednisolone acetate (PF) 1 % eye 1 drp ophthalmic (eye) [facility] 09/14/18 01/24/24 drops,suspension omega [id number] oil 1,000 mg 1 cap PO QAM 05/31/19 01/24/24 (120 mg-180 mg) capsule (Fish Oil) cetirizine 10 mg tablet (24Hour 10 mg PO QAM 07/13/20 01/24/24 Allergy) zinc 50 mg tablet 50 mg PO QAM 01/25/21 01/24/24 biotin 1 mg tablet 1 mg PO QAM 01/02/22 01/24/24 calcium carbonate (Calcium 600) 600 mg PO DAILY 01/23/23 01/24/24 cholecalciferol (vitamin D3) 25 25 mcg PO DAILY 01/23/23 01/24/24 mcg (1,000 unit) capsule polyethylene glycol 3350 17 gram 17 g PO DAILY 10/08/23 01/24/24 oral powder packet (Miralax) Previous Rx's Medication Instructions Recorded albuterol sulfate 90 mcg/actuation 2 puff inhalation Q4H PRN 02/05/21 aerosol inhaler (Ventolin HFA) Shortness Of Breath #8.5 grams fluticasone 100 mcg-salmeterol 50 1 inh inhalation BID #180 ea 07/14/22 mcg/dose blistr powdr for inhalation atorvastatin 10 mg tablet 10 mg PO QAM #90 tabs 07/14/23 lisinopril 10 mg tablet 10 mg PO QAM #90 tabs 07/14/23 omeprazole 20 mg capsule,delayed 20 mg PO DAILY #90 caps 07/14/23 release famotidine 20 mg tablet 20 mg PO DAILY #90 tabs 12/21/23 Results & Data (ED) Vital Signs Vital Signs - 24 hr 01/24/24 09:12 01/24/24 09:45 01/24/24 09:53 Temperature 36.6 C Temperature Source Temporal Artery Scan Pulse Rate 75 Pulse Rate [Apical] 75 Pulse Rate from SpO2 Sensor Respiratory Rate 18 18 Blood Pressure 162/83 H Blood Pressure [Right Arm] 155/97 H Blood Pressure Mean 109 Blood Pressure Mean [Right Arm] 116 Pulse Oximetry 99 97 Oxygen Delivery Method Room Air Room Air Sepsis Recent Fever Within 48 Hours No Sepsis New/Unexplained Change in Mental Status N/A Sepsis Action Taken by Nursing No Action Required 01/24/24 09:53 01/24/24 09:53 01/24/24 10:17 Temperature Temperature Source Pulse Rate Pulse Rate [Apical] 77 Pulse Rate from SpO2 Sensor Respiratory Rate 19 Blood Pressure Blood Pressure [Right Arm] 153/82 H Blood Pressure Mean Blood Pressure Mean [Right Arm] 105 Pulse Oximetry 98 Oxygen Delivery Method Room Air Room Air Room Air Sepsis Recent Fever Within 48 Hours Sepsis New/Unexplained Change in Mental Status Sepsis Action Taken by Nursing 01/24/24 10:19 01/24/24 10:30 01/24/24 10:45 Temperature Temperature Source Pulse Rate 77 Pulse Rate [Apical] 79 79 Pulse Rate from SpO2 Sensor Respiratory Rate 19 17 Blood Pressure Blood Pressure [Right Arm] 152/86 H 146/86 H Blood Pressure Mean Blood Pressure Mean [Right Arm] 108 106 Pulse Oximetry 97 96 Oxygen Delivery Method Room Air Room Air Sepsis Recent Fever Within 48 Hours Sepsis New/Unexplained Change in Mental Status Sepsis Action Taken by Nursing 01/24/24 11:02 01/24/24 11:45 01/24/24 12:00 Temperature Temperature Source Pulse Rate 74 73 Pulse Rate [Apical] 78 Pulse Rate from SpO2 Sensor 74 74 Respiratory Rate 18 15 19 Blood Pressure Blood Pressure [Right Arm] 158/88 H Blood Pressure Mean Blood Pressure Mean [Right Arm] 111 Pulse Oximetry 97 98 97 Oxygen Delivery Method Room Air Room Air Sepsis Recent Fever Within 48 Hours Sepsis New/Unexplained Change in Mental Status Sepsis Action Taken by Nursing 01/24/24 12:01 01/24/24 12:03 01/24/24 12:15 Temperature Temperature Source Pulse Rate 73 76 Pulse Rate [Apical] Pulse Rate from SpO2 Sensor 72 74 Respiratory Rate 15 18 Blood Pressure 130/86 Blood Pressure [Right Arm] Blood Pressure Mean 104 Blood Pressure Mean [Right Arm] Pulse Oximetry 98 97 Oxygen Delivery Method Sepsis Recent Fever Within 48 Hours Sepsis New/Unexplained Change in Mental Status Sepsis Action Taken by Nursing 01/24/24 12:24 01/24/24 12:30 01/24/24 12:33 Temperature Temperature Source Pulse Rate 71 73 Pulse Rate [Apical] Pulse Rate from SpO2 Sensor 71 73 Respiratory Rate 14 25 H Blood Pressure 144/74 H Blood Pressure [Right Arm] Blood Pressure Mean 101 Blood Pressure Mean [Right Arm] Pulse Oximetry 97 93 Oxygen Delivery Method Room Air Room Air Sepsis Recent Fever Within 48 Hours Sepsis New/Unexplained Change in Mental Status Sepsis Action Taken by Nursing 01/24/24 12:45 01/24/24 13:07 01/24/24 13:15 Temperature Temperature Source Pulse Rate 72 73 Pulse Rate [Apical] Pulse Rate from SpO2 Sensor 72 73 Respiratory Rate 17 13 Blood Pressure 138/64 Blood Pressure [Right Arm] Blood Pressure Mean 82 Blood Pressure Mean [Right Arm] Pulse Oximetry 94 97 Oxygen Delivery Method Room Air Sepsis Recent Fever Within 48 Hours Sepsis New/Unexplained Change in Mental Status Sepsis Action Taken by Nursing 01/24/24 13:36 01/24/24 14:00 01/24/24 14:00 Temperature Temperature Source Pulse Rate 73 74 Pulse Rate [Apical] Pulse Rate from SpO2 Sensor 72 75 Respiratory Rate 26 H 15 Blood Pressure 117/66 Blood Pressure [Right Arm] Blood Pressure Mean 84 Blood Pressure Mean [Right Arm] Pulse Oximetry 99 97 Oxygen Delivery Method Sepsis Recent Fever Within 48 Hours Sepsis New/Unexplained Change in Mental Status Sepsis Action Taken by Nursing 01/24/24 14:18 01/24/24 14:24 01/24/24 14:29 Temperature Temperature Source Pulse Rate 69 70 71 Pulse Rate [Apical] Pulse Rate from SpO2 Sensor 69 70 Respiratory Rate 17 19 Blood Pressure Blood Pressure [Right Arm] Blood Pressure Mean Blood Pressure Mean [Right Arm] Pulse Oximetry 99 95 Oxygen Delivery Method Sepsis Recent Fever Within 48 Hours Sepsis New/Unexplained Change in Mental Status Sepsis Action Taken by Nursing 01/24/24 14:30 01/24/24 14:33 01/24/24 14:48 Temperature Temperature Source Pulse Rate 74 81 Pulse Rate [Apical] Pulse Rate from SpO2 Sensor 74 Respiratory Rate 24 16 Blood Pressure 116/61 Blood Pressure [Right Arm] Blood Pressure Mean 87 Blood Pressure Mean [Right Arm] Pulse Oximetry 96 Oxygen Delivery Method Room Air Sepsis Recent Fever Within 48 Hours Sepsis New/Unexplained Change in Mental Status Sepsis Action Taken by Nursing 01/24/24 15:11 01/24/24 15:20 01/24/24 15:26 Temperature Temperature Source Pulse Rate 78 81 84 Pulse Rate [Apical] Pulse Rate from SpO2 Sensor 84 Respiratory Rate 22 25 H 18 Blood Pressure Blood Pressure [Right Arm] Blood Pressure Mean Blood Pressure Mean [Right Arm] Pulse Oximetry 96 Oxygen Delivery Method Room Air Sepsis Recent Fever Within 48 Hours Sepsis New/Unexplained Change in Mental Status Sepsis Action Taken by Nursing 01/24/24 15:30 01/24/24 15:38 01/24/24 15:50 Temperature Temperature Source Pulse Rate 94 H 94 H Pulse Rate [Apical] Pulse Rate from SpO2 Sensor 94 H 93 H Respiratory Rate 20 22 Blood Pressure 117/70 Blood Pressure [Right Arm] Blood Pressure Mean 96 Blood Pressure Mean [Right Arm] Pulse Oximetry 96 96 Oxygen Delivery Method Sepsis Recent Fever Within 48 Hours Sepsis New/Unexplained Change in Mental Status Sepsis Action Taken by Nursing 01/24/24 15:59 01/24/24 16:00 01/24/24 16:05 Temperature Temperature Source Pulse Rate 89 91 H Pulse Rate [Apical] Pulse Rate from SpO2 Sensor 90 91 H Respiratory Rate 27 H 21 Blood Pressure 105/65 Blood Pressure [Right Arm] Blood Pressure Mean 82 Blood Pressure Mean [Right Arm] Pulse Oximetry 94 94 Oxygen Delivery Method Sepsis Recent Fever Within 48 Hours Sepsis New/Unexplained Change in Mental Status Sepsis Action Taken by Detention Medications Current Medication List: was personally reviewed by me Laboratory Data Attestation: I reviewed the patient's lab results. 01/24/24 09:37 01/24/24 10:47 Lab Results 01/24/24 01/24/24 01/24/24 Range/Units 09:37 09:41 10:47 WBC 15.22 H (4.8-10.8) K/ul RBC 5.14 (4.20-5.40) M/uL Hgb 15.0 (12.0-16.0) g/dl POC Hgb 15.3 (12.0-16.0) g/dl Hct 45.8 (37.0-47.0) % POC Hct 45 (37-47) % MCV 89.1 (80.0-100.0) fL MCH 29.2 (25.0-34.0) pg MCHC 32.8 (32.0-36.0) g/dL RDW Std Deviation 40.4 (36.4-46.3) fL RDW Coeff of Ten 12.3 (11.5-14.5) % Plt Count 220 (130-400) K/uL MPV 11.1 (9.4-12.4) fL PT Cancelled INR Cancelled APTT Cancelled PTT Ratio Cancelled POC Sodium 144 (135-144) mmol/L Sodium 144 (136-145) mmol/L POC Potassium 4.1 (3.3-5.0) mmol/L Potassium TNP 3.8 POC Chloride 109 (101-112) mmol/L Chloride 109 H (98-107) mmol/L Carbon Dioxide 27 (21-32) mmol/L POC Total CO2 27 (24-31) mmol/L Anion Gap 8 (3-11) POC Anion Gap 14.0 L (16-25) mmol/L POC BUN 34 H (7-18) mg/dl BUN 26 H (6-23) mg/dl Creatinine 0.99 (0.6-1.2) mg/dl POC Creatinine 1.0 (0.6-1.3) mg/dl Est Cr Clr Drug Dosing 40.5 ml/min Est GFR ( Amer) 64.6 ml/min Est GFR (Non-Af Amer) 55.7 ml/min BUN/Creatinine Ratio 26.3 H (10-20) Glucose 84 (70-99(Fasting)) mg/dl POC Glucose (other) 89 (70-99) mg/dl Calcium 10.2 (8.6-10.3) mg/dl POC Ioniz Calcium Angie 1.24 (1.12-1.32) mmol/l Magnesium 2.1 (1.7-2.4) mg/dl Total Bilirubin 0.4 (0.2-1.0) mg/dl AST TNP 26 ALT 28 (7-52) U/L Alkaline Phosphatase 124 H (34-104) U/L Total Protein 7.7 (6.0-8.3) gm/dl Albumin 4.9 (3.4-5.0) gm/dl Globulin 2.8 (2.5-4.0) gm/dl Albumin/Globulin Ratio 1.8 (0.9-2) Urine Color Urine Appearance (Clear) Urine pH (4.5-7.5) Ur Specific [place] (1.000-1.030) Urine Protein (Negative) Urine Glucose (UA) (Negative) Urine Ketones (Negative) Urine Blood (Negative) Urine Nitrite (Negative) Urine Bilirubin (Negative) Urine Urobilinogen (Negative) Ur Leukocyte Esterase (Negative) 01/24/24 01/24/24 Range/Units 11:51 13:05 WBC (4.8-10.8) K/ul RBC (4.20-5.40) M/uL Hgb (12.0-16.0) g/dl POC Hgb (12.0-16.0) g/dl Hct (37.0-47.0) % POC Hct (37-47) % MCV (80.0-100.0) fL MCH (25.0-34.0) pg MCHC (32.0-36.0) g/dL RDW Std Deviation (36.4-46.3) fL RDW Coeff of Ten (11.5-14.5) % Plt Count (130-400) K/uL MPV (9.4-12.4) fL PT 10.6 INR 1.0 APTT 26 PTT Ratio 1.0 POC Sodium (135-144) mmol/L Sodium (136-145) mmol/L POC Potassium (3.3-5.0) mmol/L Potassium POC Chloride (101-112) mmol/L Chloride (98-107) mmol/L Carbon Dioxide (21-32) mmol/L POC Total CO2 (24-31) mmol/L Anion Gap (3-11) POC Anion Gap (16-25) mmol/L POC BUN (7-18) mg/dl BUN (6-23) mg/dl Creatinine (0.6-1.2) mg/dl POC Creatinine (0.6-1.3) mg/dl Est Cr Clr Drug Dosing ml/min Est GFR ( Amer) ml/min Est GFR (Non-Af Amer) ml/min BUN/Creatinine Ratio (10-20) Glucose (70-99(Fasting)) mg/dl POC Glucose (other) (70-99) mg/dl Calcium (8.6-10.3) mg/dl POC Ioniz Calcium Angie (1.12-1.32) mmol/l Magnesium (1.7-2.4) mg/dl Total Bilirubin (0.2-1.0) mg/dl AST ALT (7-52) U/L Alkaline Phosphatase (34-104) U/L Total Protein (6.0-8.3) gm/dl Albumin (3.4-5.0) gm/dl Globulin (2.5-4.0) gm/dl Albumin/Globulin Ratio (0.9-2) Urine Color Yellow Urine Appearance Clear (Clear) Urine pH 5.0 (4.5-7.5) Ur Specific [place] > 1.045 H (1.000-1.030) Urine Protein Negative (Negative) Urine Glucose (UA) Negative (Negative) Urine Ketones Negative (Negative) Urine Blood Negative (Negative) Urine Nitrite Negative (Negative) Urine Bilirubin Negative (Negative) Urine Urobilinogen Negative (Negative) Ur Leukocyte Esterase Negative (Negative) Administered Medications Discontinued Medications Aspirin (Aspirin 81 Mg Chew) 243 mg PO NOW STA Stop: 01/24/24 11:42 Last Admin: 01/24/24 11:55 Dose: 243 mg Documented By: REJI Sodium Chloride (Nss) 1,000 mls @ 999 mls/hr IV .Q1H1M ONE Stop: 01/24/24 12:02 Last Infusion: 01/24/24 12:39 Dose: Infused Documented By: Admin: 01/24/24 11:04 Dose: 999 mls/hr Documented By: STARR Ioversol (Optiray 320 100ml) 112 ml IV ONCE ONE Stop: 01/24/24 10:06 Last Admin: 01/24/24 10:06 Dose: 112 ml Documented By: GABRIELE Ondansetron HCl (Ondansetron Inj 2 Mg/Ml 2 Ml Vial) 4 mg IV NOW STA Stop: 01/24/24 11:32 Last Admin: 01/24/24 11:33 Dose: 4 mg Documented By: STARR Ondansetron HCl (Ondansetron Inj 2 Mg/Ml 2 Ml Vial) Confirm Administered Dose 4 mg .ROUTE .STK-MED ONE Stop: 01/24/24 11:33 Last Admin: 01/24/24 11:34 Dose: Not Given Documented By: STARR Imaging Data Radiologist's Impression: Chest X-Ray 01/24/24 09:23 XR chest 1V portable CLINICAL HISTORY: stroke alert TECHNIQUE: Single frontal radiograph of the chest was obtained. Comparison: None available at the time of this dictation. FINDINGS: No lines and tubes are seen. The cardiomediastinal silhouette is normal. The lungs are clear. No evidence of pleural effusion or pneumothorax. IMPRESSION: No acute chest disease. ACT 112: Negative or not required by law. Electronically signed by: Pasquale Cabrera M.D. 01/24/2024 10:[address] 01/24/24 09:23 CT head/brain wo con CLINICAL HISTORY: Neuro deficit, acute, stroke suspected Technique: Contiguous axial CT images of the head were acquired from the base of the skull to the vertex without intravenous contrast administration. Images were viewed in brain, subdural and bone windows. Automated dose lowering techniques and/or adjustment according to patient size were utilized for this exam. Comparison: None available at the time of this dictation. Findings: The ventricles, basal cisterns, and cerebral sulci are normal. There is no acute intracranial hemorrhage or evidence of acute territorial infarction. Neither mass effect, shift of the midline structures, nor abnormal extra-axial fluid collections are shown. Imaged portions of the paranasal sinuses and mastoid air cells are clear. The orbits appear normal. There are no acute fractures of the calvaria or scalp swelling. Impression: No acute intracranial hemorrhage, no evidence of acute territorial infarction or other acute intracranial disease process. ACT 112: Negative or not required by law. Electronically signed by: Pasquale Cabrera M.D. 01/24/2024 9:29 AM Head CTA 01/24/24 09:30 CT angio neck with con, CT angio head w con CLINICAL HISTORY: stroke TECHNIQUE: CT angiography of the head and neck was performed following intravenous administration of iodinated contrast. Coronal and sagittal MIPS were obtained from the axial data set and were submitted for review. Automated dose lowering techniques and/or adjustment according to patient size were utilized for this examination. All measurements were calculated based on NASCET criteria. CT DOSE: 398.83 mGy.cm Comparison: Comparison is made to CT head 01/24/2024 FINDINGS: Lungs and soft tissues are unremarkable. CTA Neck: A 3 vessel aortic arch is shown. There is no significant atherosclerotic plaque in the aortic arch or the origins of the innominate, left common carotid, and left subclavian arteries. The common carotid, external carotid, cervical segments of the internal carotid arteries, and the cervical segments of the vertebral arteries are patent without hemodynamically significant stenosis. The right vertebral artery is dominant. CTA Head: The anterior and posterior cerebral circulations are patent. origin of the right posterior cerebral artery is seen. IMPRESSION: 1. No occlusion, hemodynamically significant stenosis, or dissection in the major cervical arteries. 2. No occlusion, hemodynamically significant stenosis, aneurysm, dissection, or arteriovenous malformation in the major intracranial arteries. Assessment of stenosis of the internal carotid arteries is based on NASCET criteria. ACT 112: Negative or not required by law. Electronically signed by: Pasquale Cabrera M.D. 01/24/2024 10:29 AM Neck CTA 01/24/24 09:30 CT angio neck with con, CT angio head w con CLINICAL HISTORY: stroke TECHNIQUE: CT angiography of the head and neck was performed following intravenous administration of iodinated contrast. Coronal and sagittal MIPS were obtained from the axial data set and were submitted for review. Automated dose lowering techniques and/or adjustment according to patient size were utilized for this examination. All measurements were calculated based on NASCET criteria. CT DOSE: 398.83 mGy.cm Comparison: Comparison is made to CT head 01/24/2024 FINDINGS: Lungs and soft tissues are unremarkable. CTA Neck: A 3 vessel aortic arch is shown. There is no significant atherosclerotic plaque in the aortic arch or the origins of the innominate, left common carotid, and left subclavian arteries. The common carotid, external carotid, cervical segments of the internal carotid arteries, and the cervical segments of the vertebral arteries are patent without hemodynamically significant stenosis. The right vertebral artery is dominant. CTA Head: The anterior and posterior cerebral circulations are patent. origin of the right posterior cerebral artery is seen. IMPRESSION: 1. No occlusion, hemodynamically significant stenosis, or dissection in the major cervical arteries. 2. No occlusion, hemodynamically significant stenosis, aneurysm, dissection, or arteriovenous malformation in the major intracranial arteries. Assessment of stenosis of the internal carotid arteries is based on NASCET criteria. ACT 112: Negative or not required by law. Electronically signed by: Pasquale Cabrera M.D. 01/24/2024 10:29 AM Discharge Plan Visit Data Chief Complaint: Confusion Stated Complaint: ALTERED MENTAL STATUS ED Provider: Shailesh Andrew Discharge Problem: Acute confusion, Nausea & vomiting Forms Stand Alone Forms: [employer] Prescriptions Prescriptions: No Action albuterol sulfate [Ventolin HFA] 90 mcg/actuation HFA aerosol inhaler 2 puff INHALATION Q4H PRN (Reason: Shortness Of Breath) Qty: 8.5 2RF Rx Instructions: no fill history available cetirizine [24Hour Allergy] 10 mg tablet 10 mg PO QAM Rx Instructions: otc unable to verify lisinopril 10 mg tablet 10 mg PO QAM Qty: 90 3RF omeprazole 20 mg capsule,delayed release(DR/EC) 20 mg PO DAILY Qty: 90 3RF atorvastatin 10 mg tablet 10 mg PO QAM Qty: 90 3RF cholecalciferol (vitamin D3) 25 mcg (1,000 unit) capsule 25 mcg PO DAILY Rx Instructions: otc unable to verify calcium carbonate [Calcium 600] 600 mg calcium (1,500 mg) tablet 600 mg PO DAILY Rx Instructions: otc unable to verify famotidine 20 mg tablet 20 mg PO DAILY Qty: 90 3RF zinc 50 mg tablet 50 mg PO QAM Rx Instructions: otc unable to verify fluticasone propion-salmeterol 100-50 mcg/dose blister with device 1 inh inhalation BID Qty: 180 1RF Rx Instructions: no fill history available multivitamin Tablet 1 tab PO QAM Rx Instructions: otc unable to verify cyanocobalamin (vitamin B-12) [Vitamin B-12] 1,000 mcg Tablet 1 tab PO QAM Rx Instructions: otc unable to verify aspirin 81 mg Tablet,Delayed Release (Dr/Ec) 81 mg PO QAM prednisolone acetate (PF) 1 % Drops,Suspension 1 drp OPHTHALMIC (EYE) QAM omega 1-xuj-zqs-fish oil [Fish Oil] 1,000 mg (120 mg-180 mg) capsule 1 cap PO QAM Rx Instructions: otc unable to verify biotin 1 mg Tablet 1 mg PO QAM Rx Instructions: otc unable to verify polyethylene glycol 3350 [Miralax] 17 gram Powder In Packet 17 g PO DAILY Rx Instructions: otc unable to verify Referrals Referrals: Ina Miek DO [Primary Care Provider] - Discharge Problem: Nausea & vomiting Qualifiers: Vomiting type: unspecified Qualified Code(s): R11.2 - Nausea with vomiting, unspecified
[2024-01-24 09:53] LABS: iSTAT Hemoglobin 15.3 g/dl (12.0-16.0); iSTAT Ionized Calcium 1.24 mmol/l (1.12-1.32); iSTAT Potassium 4.1 mmol/L (3.3-5.0)
[2024-01-24 09:57] LABS: Hematocrit (blood only) 45.8 % (37.0-47.0); Mean Corpuscular Hemoglobin 29.2 pg (25.0-34.0); Mean Corpuscular Hgb Conc 32.8 g/dL (32.0-36.0); Mean Corpuscular Volume 89.1 fL (80.0-100.0); Mean Platelet Volume 11.1 fL (9.4-12.4); Platelet Count 220 K/uL (130-400); RDW Coefficient of Variation 12.3 % (11.5-14.5); RDW Standard Deviation 40.4 fL (36.4-46.3); Red Blood Count 5.14 M/uL (4.20-5.40); White Blood Count 15.22 K/ul (4.8-10.8)
[2024-01-24] MEDS: OPTIRAY 320 100ml IV ONE (10:06)
--- NOTE | 2024-01-24 10:06 | XRay Report ---
XR chest 1V portable CLINICAL HISTORY: stroke alert TECHNIQUE: Single frontal radiograph of the chest was obtained. Comparison: None available at the time of this dictation. FINDINGS: No lines and tubes are seen. The cardiomediastinal silhouette is normal. The lungs are clear. No evid ence of pleural effusion or pneumothorax. IMPRESSION: No acute chest disease. ACT 112: Negative or not required by law. Electronically signed by: Pasquale Cabrera M.D. 01/24/2024 10:04 AM
[2024-01-24 10:23] LABS: Alanine Aminotransferase 28 U/L (7-52); Albumin Globulin Ratio 1.8 (0.9-2); Albumin Level 4.9 gm/dl (3.4-5.0); Alkaline Phosphatase 124 U/L (34-104); Anion Gap 8 (3-11); BUN Creatinine Ratio 26.3 (10-20); Bilirubin,Total 0.4 mg/dl (0.2-1.0); Blood Urea Nitrogen 26 mg/dl (6-23); Calcium 10.2 mg/dl (8.6-10.3); Carbon Dioxide 27 mmol/L (21-32); Chloride 109 mmol/L (98-107); Creatinine Clr Calc Pharmacy 40.5 ml/min; Est GFR (African American) 64.6 ml/min; Est GFR (Non-African American) 55.7 ml/min; Globulin 2.8 gm/dl (2.5-4.0); Glucose 84 mg/dl (70-99(Fasting)); Magnesium 2.1 mg/dl (1.7-2.4); Sodium 144 mmol/L (136-145); Total Protein 7.7 gm/dl (6.0-8.3)
--- NOTE | 2024-01-24 10:31 | CT Scan Report ---
CT angio neck with con, CT angio head w con CLINICAL HISTORY: stroke TECHNIQUE: CT angiography of the head and neck was performed following intravenous administration of iodinated contrast. Coronal and sagittal MIPS were obtained from the axial data set and were submitte d for review. Automated dose lowering techniques and/or adjustment according to patient size were ut ilized for this examination. All measurements were calculated based on NASCET criteria. CT DOSE: 398.83 mGy.cm Comparison: Comparison is made to CT head 01/24/2024 FINDINGS: Lungs and soft tissues are unremarkable. CTA Neck: A 3 vessel aortic arch is shown. There is no significant atherosclerotic plaque in the aor tic arch or the origins of the innominate, left common carotid, and left subclavian arteries. The co mmon carotid, external carotid, cervical segments of the internal carotid arteries, and the cervical segments of the vertebral arteries are patent without hemodynamically significant stenosis. The right vertebral artery is dominant. CTA Head: The anterior and posterior cerebral circulations are patent. origin of the right pos terior cerebral artery is seen. IMPRESSION: 1. No occlusion, hemodynamically significant stenosis, or dissection in the major cervical arteries. 2. No occlusion, hemodynamically significant stenosis, aneurysm, dissection, or arteriovenous malfor mation in the major intracranial arteries. Assessment of stenosis of the internal carotid arteries is based on NASCET criteria. ACT 112: Negative or not required by law. Electronically signed by: Pasquale Cabrera M.D. 01/24/2024 10:29 AM
[2024-01-24] MEDS: SODIUM CHLORIDE 0.9% 1,000 ML IV ONE (11:04)
--- NOTE | 2024-01-24 11:11 | History & Physical Report ---
Date of Service January 24, 2024 Assessment & Plan (1) Altered mental status: Plan: Acute altered mental status Patient with retrograde amnesia morning of admission, did not remember showering or moving boxes into her room. At time of ER assessment she is alert and oriented to name, place, year. No focal deficits are present DDx includes TGA, metabolic encephalopathy, CVA. Episode of cognitive awareness, but with memory loss of where she was, morning events, and orientation questions suspicious for TGA No infectious symptoms, she has a leukocytosis but this without any infectious symptoms or left shift? Demargination from single episode of vomiting - NIHSS 0 on ER assessment. ?some facial droop transiently reported.remaining exam is with no deficits, full strength and sensation in all extremities and no cranial nerve deficits -MRI pending. Has not received any antihypertensives, BP is normal here. Will allow permissive hypertension unless stroke is ruled out by MRI BP 158/88 Aspirin continued. Additional 3 aspirin to meet a single full dose given while pending MRI. Neurology consulted Plan Chronic stable issues GERD: Continue PPI Extrinsic asthma: Continue inhalers, no acute exacerbation Hyperlipidemia: Continue statin DVT prophylaxis: Lovenox CODE STATUS: Full code Disposition: PCU Diet: Heart healthy History of Present Illness Primary Care Provider: Ina Mike DO Isabel is a 73-year-old female with a past medical history of gastroparesis, GERD, constipation, extrinsic asthma, IBS, hypertension who presents to the emergency department with possible morning retrograde amnesia, nausea, vomiting, headache and that per patient and her family her memory difficulty and amnesia is very different from her normal baseline. EKG normal sinus rhythm, inferior Q waves Leukocytosis is present without left shift Creatinine is normal, BUN/creatinine ratio is contracted CTAhead/neck is without acute occlusion, stenosis, dissection CThead is without acute finding Chest x-ray is without acute finding Aydee is seen at the bedside with her son present. She reports after waking up this morning she must of showered, however did not remember this. She reports she suddenly became confused, and describes it as a strange sensation because she knew she was confused but also could not remember her morning routine, having showered, and she was packing boxes which were in the living room but did not remember how those boxes got there. She also could not remember the day month or year. She did not have any speech difficulty or focal extremity weakness or sensory change. She did feel little bit nauseous and had a single episode of nonbloody nonbilious emesis. She did not feel like she was going to pass out and did not pass out. No chest pain or chest pressure. She has not been sick recently. Denies fever chills or sweats. 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 There was some concern in the ER for a possible left-sided facial droop however her son reports he did not notice this, this is not present on admitting assessment and she did not have any associated sensory changes. She has no prior history of stroke. She did take her medications including aspirin this morning. She has not had any recent changes to her medications Medical History: Reviewed Medications: Reviewed Surgical History: Reviewed Family history: Reviewed Allergies: Reviewed Social History: Reviewed Code Status: Full Allergies Allergy/AdvReac Type Severity Reaction Status Date / Time Sulfa (Sulfonamide Allergy Mild ITCHY Verified 12/21/23 13:12 Antibiotics) Home Medications Medication Instructions Recorded Confirmed Type aspirin 81 mg tablet,delayed 81 mg PO QAM 09/14/18 01/24/24 History release cyanocobalamin (vitamin B-12) 1 tab PO QAM 09/14/18 01/24/24 History 1,000 mcg tablet (Vitamin B-12) multivitamin 1 tab PO QAM 09/14/18 01/24/24 History prednisolone acetate (PF) 1 % eye 1 drp ophthalmic (eye) QAM 09/14/18 01/24/24 H istory drops,suspension omega 7-grv-mwz-fish oil 1,000 mg 1 cap PO QAM 05/31/19 01/24/24 History (120 mg-180 mg) capsule (Fish Oil) cetirizine 10 mg tablet (24Hour 10 mg PO QAM 07/13/20 01/24/24 History Allergy) zinc 50 mg tablet 50 mg PO QAM 01/25/21 01/24/24 History albuterol sulfate 90 mcg/actuation 2 puff inhalation Q4H PRN 02/05/21 01/24/24 Rx aerosol inhaler (Ventolin HFA) Shortness Of Breath #8.5 grams biotin 1 mg tablet 1 mg PO QAM 01/02/22 01/24/24 History fluticasone 100 mcg-salmeterol 50 1 inh inhalation BID #180 ea 07/14/22 01/24/24 Rx mcg/dose blistr powdr for inhalation calcium carbonate (Calcium 600) 600 mg PO DAILY 01/23/23 01/24/24 History cholecalciferol (vitamin D3) 25 25 mcg PO DAILY 01/23/23 01/24/24 History mcg (1,000 unit) capsule atorvastatin 10 mg tablet 10 mg PO QAM #90 tabs 07/14/23 01/24/24 Rx lisinopril 10 mg tablet 10 mg PO QAM #90 tabs 07/14/23 01/24/24 Rx omeprazole 20 mg capsule,delayed 20 mg PO DAILY #90 caps 07/14/23 01/24/24 Rx release polyethylene glycol 3350 17 gram 17 g PO DAILY 10/08/23 01/24/24 History oral powder packet (Miralax) famotidine 20 mg tablet 20 mg PO DAILY #90 tabs 12/21/23 01/24/24 Rx Past Med/Surg History Problem List (Updated 01/24/24 @ 11:22 by Pacheco Garduno MD) Altered mental status Constipation History of colon polyps Restless legs Gastroparesis Incisional hernia of anterior abdominal wall without obstruction or gangrene Nephrolithiasis Irritable bowel syndrome (IBS) UNDER CONTROL Vitamin D deficiency Osteopenia Hypercholesterolemia Extrinsic asthma LAST INHALER USE 03/2021 WITH COVID Esophageal dysmotility Diverticulosis of colon Allergic rhinitis due to pollen Osteoarthritis Hypertension GERD (gastroesophageal reflux disease) Medical History (Updated 01/24/24 @ 11:22 by Pacheco Garduno MD) Osteopenia Osteoarthritis IBS (irritable bowel syndrome) Diverticulosis of colon Allergic rhinitis Seasonal allergies Restless leg syndrome Nephrolithiasis Asthma well controlled w/ daily inhaler, rare use of rescue inhaler Hypercholesteremia Gastroparesis Chronic back pain History of COVID-19 DX'D 03/18/2021 [facility]OUGH, FATIGUE, COUGH-RECOVERED AT HOME-SYMPTOMS RESOLVED Schatzki's ring Surgical History Hx of lithotripsy History of incisional hernia repair (05/23/21) Open Repair Incarcerated Incisional Hernia Abdominal Wall - Anthony Barnes MD, FACS 05/23/21 History of esophagogastroduodenoscopy (EGD) History of colonoscopy S/P left oophorectomy Status post fine needle aspiration left breast benign History of arthroscopy of left knee meniscus repair and cyst removal History of arthroscopy of right knee meniscus repair History of lithotripsy (2016) History of hysterectomy with unilateral oophorectomy R oophorectomy History of section History of cholecystectomy History of repair of hiatal hernia (04/2016) w/ lap Panfilo Fundoplication Dr. Santos History of wisdom tooth extraction History of cornea transplant right eye x2 Family History Sister Breast cancer Colorectal cancer Father Diabetes Myocardial infarction Brother Diabetes Cancer Mother Heart disease Myocardial infarction Brother COPD (chronic obstructive pulmonary disease) Brother Multiple sclerosis Brother Myocardial infarction Unknown Ovarian cancer Aunt Breast cancer Grandmother Breast cancer Other No family history of adverse response to anesthesia Denies family history of Prostate cancer Social History Smoking Status: Never smoker Second Hand Exposure: Yes (SPOUSE SMOKES); Do You Dip or Chew Tobacco: No; Hx Alcohol Use: Yes Alcohol type: wine Hx Substance Use: No Preferred Language: Cameroonian Communication Ability: Effective Visual Impairment: No Limitations Hearing Ability: Use of Hearing Aid Broadcast Technician Required: No Beliefs That Will Affect Care: None marital status: Current Living Situation: Spouse current occupational status: employed current occupation: [employer]; [email or web address] How many Children do You have: 2 How many Children do You have Comment: One natural, one adopted Feels Safe at Home: Yes Childhood Exposure to Second-Hand Smoke: Yes Diet: regular Diet Comment: regular caffeine: Yes (Coffee 1 per day) during the past year weight has: remained stable Dental Care, Regularly: Yes Physical Activity Frequency: Daily Seatbelt Use: always Sunscreen Use: Yes Assistive Devices: Glasses and Hearing Aid - Bilateral Physical Exam Physical Exam: General: A&Ox3. NAD. Cooperative. HEENT: Atraumatic, normocephalic. Vision and hearing grossly intact. Extraocular movements intact without nystagmus. Right arcus senilis is present Pulm: CTAB A&P. -wheezes, -rales, -rhonchi. Symmetrical chest rise. No increased work of breathing. No respiratory distress. Cardiac: RRR, -mrg. Radial pulses intact and symmetrical. Abdominal: Nontender, nondistended, soft. BS present. CRANIAL NERVES: II: Pupils equal and reactive, no relative afferent pupillary defect, no VF cuts III, IV, : EOM intact, no gaze preference or deviation, no nystagmus. V: normal sensation in V1, V2, and V3 segments bilaterally VII: no asymmetry, no nasolabial fold flattening VIII: normal hearing to speech IX, X: normal palatal elevation, no uvular deviation XI: 5/5 head turn and 5/5 shoulder shrug bilaterally XII: midline tongue protrusion MOTOR: RUE: 5/5 Shoulder internal rotation, external rotation, flexion, extension, abduction, adduction 5/5 Elbow flexion/extension, wrist flexi on/extension 5/5 mortgage loan processor strength, finger flexion/extens ion, interosseus LUE: 5/5 Shoulder internal rotation, external rotation, flexion, extension, abduction, adduction 5/5 Elbow flexion/extension, wrist flexi on/extension 5/5 mortgage loan processor strength, finger flexion/extens ion, interosseus RLE: 5/5 to hip flexion, knee flexion/extensi on, ankle dorsiflexion/plantarflexion LLE: 5/5 to hip flexion, knee flexion/extensi on, ankle dorsiflexion/plantarflexion SENSORY: Normal to touch in upper and lower extremities without deficit or asymmetry COORD: Normal finger to nose Results & Data Results & Data Vital Signs (Past 12 Hours) Vital Signs Temp Pulse Pulse Resp BP BP Pulse Ox 01/24/24 11:02 78 18 158/88 H 97 01/24/24 10:45 79 17 146/86 H 96 01/24/24 10:30 79 19 152/86 H 97 01/24/24 10:19 77 01/24/24 10:17 77 19 153/82 H 98 01/24/24 09:53 01/24/24 09:53 01/24/24 09:53 01/24/24 09:45 75 18 155/97 H 97 01/24/24 09:12 36.6 C 75 18 162/83 H 99 O2 Del Method 01/24/24 11:02 01/24/24 10:45 Room Air 01/24/24 10:30 Room Air 01/24/24 10:19 01/24/24 10:17 Room Air 01/24/24 09:53 Room Air 01/24/24 09:53 Room Air 01/24/24 09:53 Room Air 01/24/24 09:45 Room Air 01/24/24 09:12 PG Care Time/CCT Total # of Minutes Spent Total Time Spent with Patient: Total time spent is greater than 50% in coordination of care (as documented) at patient's floor/unit and/or counseling patient: Coding Level of Care Code 27114 INT INP/OBS CARE 3/75MIN Diagnoses Altered mental status R41.82
[2024-01-24 11:13] LABS: Potassium 3.8 mmol/L (3.5-5.1)
[2024-01-24] MEDS: ONDANSETRON INJ 2 MG/ML 2 ML VIAL IV STA (11:33)
[2024-01-24] MEDS: ONDANSETRON INJ 2 MG/ML 2 ML VIAL ONE (11:34)
[2024-01-24] MEDS ORDERED: ONDANSETRON INJ 2 MG/ML 2 ML VIAL IV PRN (11:36)
[2024-01-24] MEDS: ASPIRIN 81 MG CHEW PO STA (11:55)
[2024-01-24 12:32] LABS: Partial Thromboplastin Time 26 Seconds (21-31); Prothrombin Time 10.6 Seconds (9.0-12.0)
[2024-01-24 13:23] LABS: Appearance Urine Clear (Clear); Bilirubin Urine Negative (Negative); Blood Urine Negative (Negative); Color Urine Yellow; Glucose Urine UA Negative (Negative); Ketones Urine Negative (Negative); Leukocyte Esterase Urine Negative (Negative); Nitrite Urine Negative (Negative); Protein Urine Negative (Negative); Specific Gravity Urine > 1.045 (1.000-1.030); Urobilinogen Urine Negative (Negative)
--- NOTE | 2024-01-24 14:12 | Neurology Consultation ---
Date of Consultation January 24, 2024 Assessment & Plan (1) Altered mental status: History of Present Illness History of Present Illness 73 yo female with about a hour of having confusion and amnesia. she was asking same questions repeatedly and not sure of the date. pt denies headache. no weakness or speech disturbance. pt does report frequent GI symptoms in the morning. pt currently feeling well and back to baseline. CT head negative. no prior similar events. admission HPI: Isabel is a 73-year-old female with a past medical history of gastroparesis, GERD, constipation, extrinsic asthma, IBS, hypertension who presents to the emergency department with possible morning retrograde amnesia, nausea, vomiting, headache and that per patient and her family her memory difficulty and amnesia is very different from her normal baseline. EKG normal sinus rhythm, inferior Q waves Leukocytosis is present without left shift Creatinine is normal, BUN/creatinine ratio is contracted CTAhead/neck is without acute occlusion, stenosis, dissection CThead is without acute finding Chest x-ray is without acute finding Aydee is seen at the bedside with her son present. She reports after waking up this morning she must of showered, however did not remember this. She reports she suddenly became confused, and describes it as a strange sensation because she knew she was confused but also could not remember her morning routine, having showered, and she was packing boxes which were in the living room but did not remember how those boxes got there. She also could not remember the day month or year. She did not have any speech difficulty or focal extremity weakness or sensory change. She did feel little bit nauseous and had a single episode of nonbloody nonbilious emesis. She did not feel like she was going to pass out and did not pass out. No chest pain or chest pressure. She has not been sick recently. Denies fever chills or sweats. 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 There was some concern in the ER for a possible left-sided facial droop however her son reports he did not notice this, this is not present on admitting assessment and she did not have any associated sensory changes. She has no prior history of stroke. She did take her medications including aspirin this morning. She has not had any recent changes to her medications Allergies Allergy/AdvReac Type Severity Reaction Status Date / Time Sulfa (Sulfonamide Allergy Mild ITCHY Verified 12/21/23 13:12 Antibiotics) Home Medications Medication Instructions Recorded Confirmed Type aspirin 81 mg tablet,delayed 81 mg PO QAM 09/14/18 01/24/24 History release cyanocobalamin (vitamin B-12) 1 tab PO QAM 09/14/18 01/24/24 History 1,000 mcg tablet (Vitamin B-12) multivitamin 1 tab PO QAM 09/14/18 01/24/24 History prednisolone acetate (PF) 1 % eye 1 drp ophthalmic (eye) QAM 09/14/18 01/24/24 History drops,suspension omega 6-jmc-cjp-fish oil 1,000 mg 1 cap PO QAM 05/31/19 01/24/24 History (120 mg-180 mg) capsule (Fish Oil) cetirizine 10 mg tablet (24Hour 10 mg PO QAM 07/13/20 01/24/24 History Allergy) zinc 50 mg tablet 50 mg PO QAM 01/25/21 01/24/24 History albuterol sulfate 90 mcg/actuation 2 puff inhalation Q4H PRN 02/05/21 01/24/24 Rx aerosol inhaler (Ventolin HFA) Shortness Of Breath #8.5 grams biotin 1 mg tablet 1 mg PO QAM 01/02/22 01/24/24 History fluticasone 100 mcg-salmeterol 50 1 inh inhalation BID #180 ea 07/14/22 01/24/24 Rx mcg/dose blistr powdr for inhalation calcium carbonate (Calcium 600) 600 mg PO DAILY 01/23/23 01/24/24 History cholecalciferol (vitamin D3) 25 25 mcg PO DAILY 01/23/23 01/24/24 History mcg (1,000 unit) capsule atorvastatin 10 mg tablet 10 mg PO QAM #90 tabs 07/14/23 01/24/24 Rx lisinopril 10 mg tablet 10 mg PO QAM #90 tabs 07/14/23 01/24/24 Rx omeprazole 20 mg capsule,delayed 20 mg PO DAILY #90 caps 07/14/23 01/24/24 Rx release polyethylene glycol 3350 17 gram 17 g PO DAILY 10/08/23 01/24/24 History oral powder packet (Miralax) famotidine 20 mg tablet 20 mg PO DAILY #90 tabs 12/21/23 01/24/24 Rx Patient History Medical History (Updated 01/24/24 @ 14:12 by Moses Rodriguez MD) Osteopenia Osteoarthritis IBS (irritable bowel syndrome) Diverticulosis of colon Allergic rhinitis Seasonal allergies Restless leg syndrome Nephrolithiasis Asthma well controlled w/ daily inhaler, rare use of rescue inhaler Hypercholesteremia Gastroparesis Chronic back pain History of COVID-19 DX'D 03/18/2021 [facility]-COUGH, FATIGUE, COUGH-RECOVERED AT HOME-SYMPTOMS RESOLVED Schatzki's ring Surgical History Hx of lithotripsy History of incisional hernia repair (05/23/21) Open Repair Incarcerated Incisional Hernia Abdominal Wall - Anthony Barnes MD, FACS 05/23/21 History of esophagogastroduodenoscopy (EGD) History of colonoscopy S/P left oophorectomy Status post fine needle aspiration left breast benign History of arthroscopy of left knee meniscus repair and cyst removal History of arthroscopy of right knee meniscus repair History of lithotripsy (2016) History of hysterectomy with unilateral oophorectomy R oophorectomy History of section History of cholecystectomy History of repair of hiatal hernia (04/2016) w/ lap Panfilo Fundoplication Dr. Santos History of wisdom tooth extraction History of cornea transplant right eye x2 Family History Sister Breast cancer Colorectal cancer Father Diabetes Myocardial infarction Brother Diabetes Cancer Mother Heart disease Myocardial infarction Brother COPD (chronic obstructive pulmonary disease) Brother Multiple sclerosis Brother Myocardial infarction Unknown Ovarian cancer Aunt Breast cancer Grandmother Breast cancer Other No family history of adverse response to anesthesia Denies family history of Prostate cancer Social History Smoking Status: Never smoker Second Hand Exposure: Yes (SPOUSE SMOKES); Do You Dip or Chew Tobacco: No; Hx Alcohol Use: Yes Alcohol type: wine Hx Substance Use: No Preferred Language: Greek Communication Ability: Effective Visual Impairment: No Limitations Hearing Ability: Use of Hearing Aid Supply Chain Specialist Required: No Beliefs That Will Affect Care: None marital status: Current Living Situation: Spouse current occupational status: employed current occupation: [employer]; [employer] How many Children do You have: 2 How many Children do You have Comment: One natural, one adopted Feels Safe at Home: Yes Childhood Exposure to Second-Hand Smoke: Yes Diet: regular Diet Comment: regular caffeine: Yes (Coffee 1 per day) during the past year weight has: remained stable Dental Care, Regularly: Yes Physical Activity Frequency: Daily Seatbelt Use: always Sunscreen Use: Yes Assistive Devices: Glasses and Hearing Aid - Bilateral Exam (Neuro) Physical Exam: HEENT: normocephalic grossly Neuro: Mental: AOx4, fluent speech, normal comprehension, no apraxia, no L/R confusion, no neglect CN: PERRL, Full EOM, symmetric face, midline T/U/P, grossly full ROM neck Motor: No abnormal movements, normal tone, 5/5 t/o bilaterally Sens: intact to touch b/l grossly Coord: intact FNT b/l DTR: 2+ sym b/l Impression: 73 yo female with 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 Recommendations: pending mri brain, if negative, no further work up needed as TGA is consider a benign event. avoid dehydration f/u on mri. pending result, pt may be able to go home as she is eager to go home. Chart reviewed I have spent more than 50% educating patient about potential diagnosis and ne urological evaluation and coordinating care with patient's treatment team. Total time spent (including chart review and coordination of care): 45 min (this includes chart review). Results & Data Vital Signs (Past 12 Hours) Vital Signs Temp Pulse Pulse Resp BP BP Pulse Ox 01/24/24 12:45 72 17 94 01/24/24 12:33 73 25 H 93 01/24/24 12:30 144/74 H 01/24/24 12:24 71 14 97 01/24/24 12:15 76 18 97 01/24/24 12:03 73 15 98 01/24/24 12:01 130/86 01/24/24 12:00 73 19 97 01/24/24 11:45 74 15 98 01/24/24 11:02 78 18 158/88 H 97 01/24/24 10:45 79 17 146/86 H 96 01/24/24 10:30 79 19 152/86 H 97 01/24/24 10:19 77 01/24/24 10:17 77 19 153/82 H 98 01/24/24 09:53 01/24/24 09:53 01/24/24 09:53 01/24/24 09:45 75 18 155/97 H 97 01/24/24 09:12 36.6 C 75 18 162/83 H 99 O2 Del Method 01/24/24 12:45 Room Air 01/24/24 12:33 Room Air 01/24/24 12:30 01/24/24 12:24 Room Air 01/24/24 12:15 01/24/24 12:03 01/24/24 12:01 01/24/24 12:00 Room Air 01/24/24 11:45 Room Air 01/24/24 11:02 01/24/24 10:45 Room Air 01/24/24 10:30 Room Air 01/24/24 10:19 01/24/24 10:17 Room Air 01/24/24 09:53 Room Air 01/24/24 09:53 Room Air 01/24/24 09:53 Room Air 01/24/24 09:45 Room Air 01/24/24 09:12 PG Care Time/CCT Total # of Minutes Spent Total Time Spent with Patient: Total time spent is greater than 50% in coordination of care (as documented) at patient's floor/unit and/or counseling patient: Coding Level of Care Code 37756 IN/OBS CONSULT LVL 3,45M Diagnoses Altered mental status, unspecified altered mental status type R41.82 Altered mental status type: unspecified (1) Altered mental status Altered mental status type: unspecified Qualified Code(s): R41.82 - Altered mental status, unspecified
[2024-01-24] MEDS ORDERED: ALBUTEROL HFA 8 GM INHALER INH PRN (16:46)
[2024-01-24] MEDS ORDERED: PHARMACIST DISCHARGE MED REC CONSULT PRN (16:46)
[2024-01-24] MEDS ORDERED: ACETAMINOPHEN 325 MG TAB PO PRN (16:46)
--- NOTE | 2024-01-24 18:15 | Magnetic Resonance Report ---
MR brain wo con CLINICAL HISTORY: AMS, L facial droop, amnesia TECHNIQUE: Multiplanar and multisequence MR images of the brain were obtained without intravenous con trast. Comparison: None available at the time of this dictation. FINDINGS: No abnormal restricted diffusion is identified. The white matter is unremarkable. The ventricular sys tem is normal in appearance. No mass is seen. There is no mass effect or midline shift. There is no e vidence of acute intraparenchymal hemorrhage. No extra axial fluid collections are seen. The corpus c allosum, pituitary gland, and cerebellar tonsils appear grossly unremarkable. Flow voids of the major intracranial arterial vessels are identified. The imaged portions of the para nasal sinuses, mastoid air cells, and orbits are unremarkable. Right lens replacement is incidentally noted. IMPRESSION: No acute abnormality and in particular no evidence of acute infarct. ACT 112: Negative or not required by law. Electronically signed by: Pasquale Cabrera M.D. 01/24/2024 6:14 PM
[2024-01-25 05:08] LABS: Basophils # (auto) 0.03 K/uL (0.00-0.20); Basophils % (auto) 0.4 %; Eosinophils # (auto) 0.18 K/uL (0.00-0.50); Eosinophils % (auto) 2.4 %; Hematocrit (blood only) 38.9 % (37.0-47.0); Hemoglobin 12.4 g/dl (12.0-16.0); Immature Granulocytes # (auto) 0.02 K/uL (0.01-0.20); Immature Granulocytes % (auto) 0.3 %; Lymphocytes # (auto) 1.35 K/uL (1.20-3.40); Lymphocytes % (auto) 18.2 %; Mean Corpuscular Hemoglobin 28.8 pg (25.0-34.0); Mean Corpuscular Hgb Conc 31.9 g/dL (32.0-36.0); Mean Corpuscular Volume 90.5 fL (80.0-100.0); Mean Platelet Volume 10.8 fL (9.4-12.4); Monocytes # (auto) 0.67 K/uL (0.11-0.59); Neutrophils # (auto) 5.18 K/uL (1.40-6.50); Neutrophils % (auto) 69.7 %; Platelet Count 173 K/uL (130-400); RDW Coefficient of Variation 12.7 % (11.5-14.5); RDW Standard Deviation 41.7 fL (36.4-46.3); White Blood Count 7.43 K/ul (4.8-10.8)
[2024-01-25 05:24] LABS: BUN Creatinine Ratio 21.5 (10-20); Calcium 8.9 mg/dl (8.6-10.3); Chol HDL Ratio 3.3 (0-5); Creatinine Clr Calc Pharmacy 37.5 ml/min; Est GFR (African American) 58.8 ml/min; Est GFR (Non-African American) 50.7 ml/min; Potassium 3.8 mmol/L (3.5-5.1)
[2024-01-25 07:53] LABS: Estimated Average Glucose 111 mg/dl; Hemoglobin A1C 5.5 % (4.5-5.6)
[2024-01-25 08:11] VITALS: BP 122/62; RESP 22; O2SAT 96
[2024-01-25] MEDS ORDERED: NON-FORMULARY MEDICATION (Biotin 1 mg Tablet) PO SCH (09:00)
[2024-01-25] MEDS: POLYETHYLENE (MIRALAX) 17 GM PACK PO SCH (09:06)
[2024-01-25] MEDS: FLUTICASONE/VILANTEROL 100/25MCG 14 PUFFS/INHALER INH SCH (09:07)
[2024-01-25] MEDS: PANTOprazole 40 MG TAB PO SCH (09:08)
[2024-01-25] MEDS: ASPIRIN 81 MG ECTAB PO SCH (09:08)
[2024-01-25] MEDS: FAMOTIDINE 20 MG TAB PO SCH (09:08)
[2024-01-25] MEDS: CALCIUM CARBONATE 1250MG TAB PO SCH (09:08)
[2024-01-25] MEDS: CYANOCOBALAMIN (B-12) 500 MCG TABLET PO SCH (09:08)
[2024-01-25] MEDS: CETIRIZINE HCL 10 MG TABLET PO SCH (09:08)
[2024-01-25] MEDS: CHOLECALCIFEROL 25 MCG (1000 UNITS) TAB PO SCH (09:08)
[2024-01-25] MEDS: ATORVASTATIN 10 MG TAB PO SCH (09:08)
[2024-01-25] MEDS: ZINC SULFATE 220 MG CAPSULE PO SCH (09:08)
[2024-01-25] MEDS: OMEGA-3 (PURIFIED FISH OIL) 1 GM CAP PO SCH (09:08)
[2024-01-25] MEDS: MULTIVITAMIN TAB PO SCH (09:09)
[2024-01-25] MEDS: ENOXAPARIN INJ 40 MG/0.4 ML SYR SQ SCH (09:11)
[2024-01-25] MEDS: prednisoLONE acetate 1% OP SUSP 5 ML BTL OP SCH (09:12)
--- NOTE | 2024-01-25 11:14 | Discharge Summary ---
Discharge Summary Date of Service January 25, 2024 Principal Dx & Hospital Course #1 = Principal Diagnosis (1) Altered mental status: Acute altered mental status Patient with retrograde amnesia morning of admission, did not remember showering or moving boxes into her room. At time of ER assessment she is alert and oriented to name, place, year. No focal deficits are present DDx includes TGA, metabolic encephalopathy, CVA. Episode of cognitive a wareness, but with memory loss of where she was, morning events, and orientation questions suspicious for TGA No infectious symptoms, she has a leukocytosis but this without any infectious symptoms or left shift? Demargination from single episode of vomiting - NIHSS 0 on ER assessment. ?some facial droop transiently reported.remaining exam is with no deficits, full strength and sensation in all extremities and no cranial nerve deficits -MRI negative Aspirin continued. Additional 3 aspirin to meet a single full dose given while pending MRI. Neurology consulted Normal exam. This is transient global amnesia. will hold lisinopril due to BP being normal. Plan Chronic stable issues GERD: Continue PPI Extrinsic asthma: Continue inhalers, no acute exacerbation Hyperlipidemia: Continue statin \ Admission HPI Per Admitting Provider Isabel is a 73-year-old female with a past medical history of gastroparesis, GERD, constipation, extrinsic asthma, IBS, hypertension who presents to the emergency department with possible morning retrograde amnesia, nausea, vomiting, headache and that per patient and her family her memory difficulty and amnesia is very different from her normal baseline. EKG normal sinus rhythm, inferior Q waves Leukocytosis is present without left shift Creatinine is normal, BUN/creatinine ratio is contracted CTAhead/neck is without acute occlusion, stenosis, dissection CThead is without acute finding Chest x-ray is without acute finding Aydee is seen at the bedside with her son present. She reports after waking up this morning she must of showered, however did not remember this. She reports she suddenly became confused, and describes it as a strange sensation because she knew she was confused but also could not remember her morning routine, having showered, and she was packing boxes which were in the living room but did not remember how those boxes got there. She also could not remember the day month or year. She did not have any speech difficulty or focal extremity weakness or sensory change. She did feel little bit nauseous and had a single episode of nonbloody nonbilious emesis. She did not feel like she was going to pass out and did not pass out. No chest pain or chest pressure. She has not been sick recently. Denies fever chills or sweats. 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 There was some concern in the ER for a possible left-sided facial droop however her son reports he did not notice this, this is not present on admitting assessment and she did not have any associated sensory changes. She has no prior history of stroke. She did take her medications including aspirin this morning. She has not had any recent changes to her medications Medical History: Reviewed Medications: Reviewed Surgical History: Reviewed Family history: Reviewed Allergies: Reviewed Social History: Reviewed Code Status: Full Discharge Exam General: A&Ox3. NAD. Cooperative. HEENT: Atraumatic, normocephalic. Vision and hearing grossly intact. Extraocular movements intact without nystagmus. Pulm: CTAB A&P. -wheezes, -rales, -rhonchi. Symmetrical chest rise. No increased work of breathing. No respiratory distress. Cardiac: RRR, -mrg. Radial pulses intact and symmetrical. Abdominal: Nontender, nondistended, soft. BS present. Discharge Plan Discharge Items Patient Disposition: Home - Self-Care Reason For Visit: confusion, ?Tia vs TGA Discharge Diagnosis: transient global amnesia Activity: Resume your previous activity Non-emergency contact: Primary Care Provider Call non-emergency contact if: you have any medication questions Follow-up/Referrals: Ina Mike DO [Primary Care Provider] - Diet: Heart Healthy Addtl Attending Provider Instructions: You suffered a transient global amnesia. This explnains why you were forgetful. There is no exact cause to why this happened. Thankfully we were able to rule out a stroke. Given that your symptoms improved, we an discharge you. We will recommend a close followup with your PCP in 1-2 weeks. We will hold lisinopril until then given your low blood pressure. Pending Studies at Discharge: No Stand-Alone Forms: [facility], Smoking Cessation Medications and DC Order Prescriptions: Continued albuterol sulfate [Ventolin HFA] 90 mcg/actuation HFA aerosol inhaler 2 puff INHALATION Q4H PRN (Reason: Shortness Of Breath) Qty: 8.5 2RF Rx Instructions: no fill history available cetirizine [24Hour Allergy] 10 mg tablet 10 mg PO QAM Rx Instructions: otc unable to verify omeprazole 20 mg capsule,delayed release(DR/EC) 20 mg PO DAILY Qty: 90 3RF atorvastatin 10 mg tablet 10 mg PO QAM Qty: 90 3RF cholecalciferol (vitamin D3) 25 mcg (1,000 unit) capsule 25 mcg PO DAILY Rx Instructions: otc unable to verify calcium carbonate [Calcium 600] 600 mg calcium (1,500 mg) tablet 600 mg PO DAILY Rx Instructions: otc unable to verify famotidine 20 mg tablet 20 mg PO DAILY Qty: 90 3RF zinc 50 mg tablet 50 mg PO QAM Rx Instructions: otc unable to verify fluticasone propion-salmeterol 100-50 mcg/dose blister with device 1 inh inhalation BID Qty: 180 1RF Rx Instructions: no fill history available multivitamin Tablet 1 tab PO QAM Rx Instructions: otc unable to verify cyanocobalamin (vitamin B-12) [Vitamin B-12] 1,000 mcg Tablet 1 tab PO QAM Rx Instructions: otc unable to verify aspirin 81 mg Tablet,Delayed Release (Dr/Ec) 81 mg PO QAM prednisolone acetate (PF) 1 % Drops,Suspension 1 drp OPHTHALMIC (EYE) QAM omega 4-cct-nca-fish oil [Fish Oil] 1,000 mg (120 mg-180 mg) capsule 1 cap PO QAM Rx Instructions: otc unable to verify biotin 1 mg Tablet 1 mg PO QAM Rx Instructions: otc unable to verify polyethylene glycol 3350 [Miralax] 17 gram Powder In Packet 17 g PO DAILY Rx Instructions: otc unable to verify Held lisinopril 10 mg tablet 10 mg PO QAM Qty: 90 3RF Hold Instructions: Resume on 02/08/24. until follow-up with your PCP Discharge Orders: Discharge Order (Routine); Ordered 01/25/24 Ordered By: Freeman Ortiz Admission Data Admit Date/Time: 01/24/24 13:57 Attending Provider: Freeman Ortiz Admit Provider: Pacheco Garduno Primary Care Provider: Ina Mike Other Providers: Pacheco Garduno; Moses Rodriguez Other Interventions: Discharge Summary Assessment (RN) Last Done: 01/25/24 11:52 Hospital Stay Data Consultations 01/24/24 11:01 ED Decision to Admit Stat 01/24/24 11:42 Consult Neurology Routine Diagnostic Imagining Performed 01/24/24 09:23 CT head/brain wo con Stat 01/24/24 09:30 CT angio head w con Stat CT angio neck with con Stat 01/24/24 16:46 MR brain wo con Routine Pending Results Patient Have Any Pending Studies at Discharge: No Discharge Instructions Given to Patient (Per Discharging Provider) You suffered a transient global amnesia. This explnains why you were forgetful. There is no exact cause to why this happened. Thankfully we were able to rule out a stroke. Given that your symptoms improved, we an discharge you. We will recommend a close followup with your PCP in 1-2 weeks. We will hold lisinopril until then given your low blood pressure. Total Time Total Time Spent Total Time Spent (In Minutes): 32 Coding Level of Care Code 28810 INP/OBS DISCH >30 MIN Diagnoses Altered mental status, unspecified altered mental status type R41.82 Altered mental status type: unspecified
[2024-01-25 11:57] VITALS: PULSE 65
--- NOTE | 2024-01-26 06:07 | Electrocardiogram Report ---
Test Reason : Blood Pressure : */* mmHG Vent. Rate : 74 BPM Atrial Rate : 74 BPM P-R Int : 156 ms QRS Dur : 82 ms QT Int : 390 ms P-R-T Axes : 51 -17 34 degrees QTcB Int : 432 ms Normal sinus rhythm Inferior infarct , age undetermined Possible Anterior infarct , age undetermined Abnormal ECG When compared with ECG of 16-May-2021 10:37, Inferior infarct is now Present Confirmed by Demetris Vo ([id number]) on 01/26/2024 6:06:31 AM Referred By: Confirmed By: Demetris Vo
== END 2024-01-25 11:57 | disposition home or self-care (01) ==
LOC: EDINP 09:11 → ED 09:11 → SUATTDRO 13:57 → EDINP 16:47